=== PATIENT | male | born 1985 | race Caucasian/White ===

== ENCOUNTER 2020-10-14 16:52 | Inpatient (IN) | payer MEDICAID ==
[~2020-10-14] VITALS: Ht 167.6 cm; Wt 57.2 kg
[2020-10-14] MEDS ORDERED: OLAN10TA74 PO (22:40)
[2020-10-15] MEDS: OLANZapine 10 MG TABLET PO SCH ×3 (03:58→16:57)
[2020-10-15 06:10] VITALS: BP 118/79
[2020-10-15] MEDS ORDERED: CloNIDine HCL 0.1 MG TABLET PO PRN (07:15)
[2020-10-15] MEDS ORDERED: GuaiFENesin/D-METHORPHAN [SUGAR-FREE] 200-20MG/10 ML SYRUP UDCUP PO PRN (07:15)
[2020-10-15] MEDS ORDERED: ALBUTEROL SULFATE HFA 90 MCG/PUFF 8 GM INHALER IH PRN (07:15)
[2020-10-15] MEDS ORDERED: DOCUSATE SODIUM 100 MG CAPSULE PO PRN (07:15)
[2020-10-15] MEDS ORDERED: NICOTINE 14 MG/24 HOUR PATCH TD PRN (07:15)
[2020-10-15] MEDS ORDERED: MAGNESIUM HYDROXIDE SUSPENSION 30 ML UDCUP PO PRN (07:15)
[2020-10-15] MEDS ORDERED: MAG HYDROX/AL HYDROX/SIMETH ES 30 ML SUSPENSION UDCUP PO PRN (07:15)
[2020-10-15] MEDS ORDERED: LOPERAMIDE HCL 2 MG CAPSULE PO PRN (07:15)
[2020-10-15] MEDS ORDERED: IBUPROFEN 400 MG TABLET PO PRN (07:15)
[2020-10-15] MEDS ORDERED: ONDANSETRON HCL 4 MG TABLET PO PRN (07:15)
[2020-10-15] MEDS ORDERED: ACETAMINOPHEN 325 MG TABLET PO PRN (07:15)
[2020-10-15] MEDS ORDERED: PETROLATUM,WHITE 28 GM JELLY TP PRN (07:15)
[2020-10-15 09:40] VITALS: BP 119/69
[2020-10-15] MEDS ORDERED: GABAPENTIN 300 MG CAPSULE PO SCH (10:15)
[2020-10-15] MEDS ORDERED: CLOZ100T32 PO (11:17)
[2020-10-15] MEDS ORDERED: DIPH-1080 PO (12:05)
[2020-10-15] MEDS ORDERED: HYD25 PO (12:05)
[2020-10-15] MEDS ORDERED: BENZ1TAB10 PO (12:05)
[2020-10-15] MEDS ORDERED: PARO-37 PO (12:05)
[2020-10-15] MEDS ORDERED: MIRT-92 PO (12:05)
[2020-10-15] MEDS ORDERED: CHLO50TA24 PO (12:05)
[2020-10-15] MEDS ORDERED: ARIP10TA38 PO (12:05)
[2020-10-15 16:33] VITALS: BP 116/72
[2020-10-15] MEDS ORDERED: DiphenhydrAMINE HCL 50 MG/ML VIAL IM ONE (16:45)
[2020-10-15] MEDS ORDERED: ChlorproMAZINE HCL 50 MG/2 ML AMP IM ONE (16:45)
[2020-10-15] MEDS ORDERED: LORazepam 2 MG/ML VIAL IM ONE (16:45)
[2020-10-15] MEDS ORDERED: DiphenhydrAMINE HCL 50 MG/ML VIAL ONE (16:47)
[2020-10-15] MEDS ORDERED: LORazepam 2 MG/ML VIAL ONE (16:47)
[2020-10-15] MEDS ORDERED: ChlorproMAZINE HCL 50 MG/2 ML AMP ONE (16:47)
[2020-10-15] MEDS: CloZAPine 100 MG TABLET PO SCH (16:57)
[2020-10-15] MEDS ORDERED: OLANZapine 7.5 MG TABLET PO SCH (17:00)
[2020-10-15] MEDS ORDERED: OLANZapine 10 MG TABLET PO SCH (17:00)
[2020-10-16 01:43] VITALS: BP 127/81
[2020-10-16 08:24] VITALS: BP 120/81
[2020-10-16] MEDS: OLANZapine 10 MG TABLET PO SCH ×2 (09:00→16:50)
[2020-10-16] MEDS: CloZAPine 100 MG TABLET PO SCH ×2 (09:00→16:50)
[2020-10-16] MEDS ORDERED: LORazepam 2 MG/ML VIAL IM ONE (09:00)
[2020-10-16] MEDS ORDERED: ChlorproMAZINE HCL 50 MG/2 ML AMP IM ONE (09:00)
[2020-10-16] MEDS ORDERED: DiphenhydrAMINE HCL 50 MG/ML VIAL IM ONE (09:00)
[2020-10-17 00:21] VITALS: BP 104/70
[2020-10-17 08:34] LABS: APPEARANCE,URINE CLEAR (CLEAR); BILIRUBIN,URINE NEGATIVE (NEGATIVE); GLUCOSE, URINE (UA) NEGATIVE (NEGATIVE); KETONES,URINE NEGATIVE (NEGATIVE); LEUKOCYTE ESTERASE ,URINE NEGATIVE (NEGATIVE); NITRATE,URINE NEGATIVE (NEGATIVE); OCCULT BLOOD,URINE NEGATIVE (NEGATIVE); PROTEIN,URINE NEGATIVE (NEGATIVE); UROBILINOGEN,URINE 0.2 mg/dL (<=1.0)
[2020-10-17 08:38] LABS: AMPHET/METH SCREEN,URINE POSITIVE (NEGATIVE); BARBITURATE SCREEN, URINE NEGATIVE (NEGATIVE); BENZODIAZEPINES SCREEN,URINE NEGATIVE (NEGATIVE); CANNABINOID SCREEN,URINE NEGATIVE (NEGATIVE); COCAINE SCREEN,URINE NEGATIVE (NEGATIVE); METHADONE SCREEN, URINE NEGATIVE (NEGATIVE); OPIATE SCREEN,URINE NEGATIVE (NEGATIVE)
[2020-10-17] MEDS: OLANZapine 10 MG TABLET PO SCH ×2 (08:41→17:00)
[2020-10-17] MEDS: CloZAPine 100 MG TABLET PO SCH ×2 (08:41→17:00)
[2020-10-17 08:44] LABS: PHENCYCLIDINE SCREEN,URINE NEGATIVE (NEGATIVE)
[2020-10-17] MEDS ORDERED: LORazepam 2 MG/ML VIAL ONE (18:44)
[2020-10-17] MEDS ORDERED: DiphenhydrAMINE HCL 50 MG/ML VIAL IM ONE (18:45)
[2020-10-17] MEDS ORDERED: DiphenhydrAMINE HCL 50 MG/ML VIAL ONE (18:45)
[2020-10-17] MEDS ORDERED: LORazepam 2 MG/ML VIAL IM ONE (18:45)
[2020-10-17] MEDS ORDERED: HALOPERIDOL LACTATE 5 MG/ML VIAL ONE (18:45)
[2020-10-17] MEDS ORDERED: HALOPERIDOL LACTATE 5 MG/ML VIAL IM ONE (18:45)
[2020-10-18] MEDS: CloZAPine 100 MG TABLET PO SCH ×2 (09:00→16:52)
[2020-10-18] MEDS: OLANZapine 10 MG TABLET PO SCH ×2 (09:00→16:52)
[2020-10-18] MEDS ORDERED: HALOPERIDOL LACTATE 5 MG/ML VIAL IM ONE (10:30)
[2020-10-18] MEDS ORDERED: DiphenhydrAMINE HCL 50 MG/ML VIAL IM ONE (10:30)
[2020-10-18] MEDS ORDERED: LORazepam 2 MG/ML VIAL IM ONE (10:30)
[2020-10-19 08:28] VITALS: BP 124/76
[2020-10-19] MEDS: CloZAPine 100 MG TABLET PO SCH ×2 (08:57→18:22)
[2020-10-19] MEDS: OLANZapine 10 MG TABLET PO SCH ×2 (08:57→18:22)
[2020-10-19 16:11] VITALS: BP 125/79
[2020-10-19] MEDS: LORazepam 2 MG TABLET PO PRN (18:22)
[2020-10-20 04:30] VITALS: BP 130/79
[2020-10-20] MEDS: CloZAPine 100 MG TABLET PO SCH ×2 (08:50→16:36)
[2020-10-20] MEDS: OLANZapine 10 MG TABLET PO SCH ×2 (08:50→16:36)
[2020-10-20] MEDS: HALOPERIDOL LACTATE 5 MG/ML VIAL IM PRN (09:20)
[2020-10-20] MEDS ORDERED: ChlorproMAZINE HCL 50 MG/2 ML AMP IM ONE (16:45)
[2020-10-20] MEDS ORDERED: LORazepam 2 MG/ML VIAL IM ONE (16:45)
[2020-10-20] MEDS ORDERED: DiphenhydrAMINE HCL 50 MG/ML VIAL IM ONE (16:45)
[2020-10-20] MEDS ORDERED: LORazepam 2 MG/ML VIAL ONE (16:46)
[2020-10-20] MEDS ORDERED: ChlorproMAZINE HCL 50 MG/2 ML AMP ONE (16:47)
[2020-10-20] MEDS ORDERED: DiphenhydrAMINE HCL 50 MG/ML VIAL ONE (16:47)
[2020-10-20 17:56] VITALS: BP 118/70
[2020-10-21 02:26] VITALS: BP 129/81
[2020-10-21] MEDS: LORazepam 2 MG/ML VIAL IM ONE ×2 (08:30→10:12)
[2020-10-21] MEDS: DiphenhydrAMINE HCL 50 MG/ML VIAL IM ONE ×2 (08:30→10:13)
[2020-10-21] MEDS ORDERED: ChlorproMAZINE HCL 50 MG/2 ML AMP IM ONE ×2 (08:30→09:15)
[2020-10-21] MEDS ORDERED: LORazepam 2 MG/ML VIAL ONE (08:32)
[2020-10-21] MEDS ORDERED: ChlorproMAZINE HCL 50 MG/2 ML AMP ONE (08:33)
[2020-10-21] MEDS ORDERED: DiphenhydrAMINE HCL 50 MG/ML VIAL ONE (08:33)
[2020-10-21] MEDS: CloZAPine 100 MG TABLET PO SCH ×2 (09:00→17:00)
[2020-10-21] MEDS: OLANZapine 10 MG TABLET PO SCH ×2 (09:00→17:00)
[2020-10-21 09:15] VITALS: BP 108/66
[2020-10-21] MEDS ORDERED: LORazepam 2 MG/ML VIAL IM ONE (09:15)
[2020-10-21] MEDS ORDERED: DiphenhydrAMINE HCL 50 MG/ML VIAL IM ONE (09:15)
[2020-10-21] MEDS: HALOPERIDOL LACTATE 5 MG/ML VIAL IM PRN ×2 (10:00→17:17)
[2020-10-21 16:12] VITALS: BP 111/68
[2020-10-22 01:00] VITALS: BP 116/78
[2020-10-22] MEDS: OLANZapine 10 MG TABLET PO SCH ×3 (09:00→17:24)
[2020-10-22] MEDS: CloZAPine 100 MG TABLET PO SCH ×3 (09:00→17:24)
[2020-10-22] MEDS: HALOPERIDOL LACTATE 5 MG/ML VIAL IM PRN (09:07)
[2020-10-23] MEDS: CloZAPine 100 MG TABLET PO SCH ×2 (09:00→16:21)
[2020-10-23] MEDS: OLANZapine 10 MG TABLET PO SCH ×2 (09:00→16:21)
[2020-10-23] MEDS: HALOPERIDOL LACTATE 5 MG/ML VIAL IM PRN ×2 (09:20→17:04)
[2020-10-24 02:34] VITALS: BP 114/70
[2020-10-24] MEDS: ZOLPIDEM TARTRATE 10 MG TABLET PO PRN (02:37)
[2020-10-24] MEDS ORDERED: LORazepam 2 MG/ML VIAL ONE (07:40)
[2020-10-24] MEDS ORDERED: LORazepam 2 MG/ML VIAL IM ONE (07:45)
[2020-10-24] MEDS ORDERED: DiphenhydrAMINE HCL 50 MG/ML VIAL IM ONE (07:45)
[2020-10-24] MEDS ORDERED: HALOPERIDOL LACTATE 5 MG/ML VIAL IM ONE (07:45)
[2020-10-24] MEDS: CloZAPine 100 MG TABLET PO SCH ×2 (09:00→16:41)
[2020-10-24] MEDS: OLANZapine 10 MG TABLET PO SCH ×2 (09:00→16:41)
[2020-10-24] MEDS: HALOPERIDOL LACTATE 5 MG/ML VIAL IM PRN ×2 (09:35→16:59)
[2020-10-25 08:09] VITALS: BP 125/83
[2020-10-25] MEDS: HALOPERIDOL LACTATE 5 MG/ML VIAL IM PRN ×2 (08:50→17:37)
[2020-10-25] MEDS: CloZAPine 100 MG TABLET PO SCH ×2 (08:52→17:00)
[2020-10-25] MEDS: OLANZapine 10 MG TABLET PO SCH ×2 (08:52→17:00)
[2020-10-25 16:04] VITALS: BP 107/72
[2020-10-26 01:48] VITALS: BP 118/72
[2020-10-26 07:34] LABS: GLUCOMETER DEV NAME(LOC) BV3N.; GLUCOSE,POINT OF CARE 114 MG/DL (70-110)
[2020-10-26 08:21] VITALS: BP 111/68
[2020-10-26] MEDS: CloZAPine 100 MG TABLET PO SCH ×2 (08:35→16:14)
[2020-10-26] MEDS: OLANZapine 10 MG TABLET PO SCH ×2 (08:35→16:14)
[2020-10-26] MEDS: BENZTROPINE MESYLATE 1 MG TABLET PO SCH (16:14)
[2020-10-26] MEDS: HALOPERIDOL LACTATE 5 MG/ML VIAL IM PRN (22:12)
[2020-10-27] MEDS: HALOPERIDOL 5 MG TABLET PO PRN (03:22)
[2020-10-27] MEDS: BENZTROPINE MESYLATE 1 MG TABLET PO SCH ×2 (10:55→16:51)
[2020-10-27] MEDS: CloZAPine 100 MG TABLET PO SCH ×2 (10:55→16:51)
[2020-10-27] MEDS: OLANZapine 10 MG TABLET PO SCH ×2 (10:55→16:51)
[2020-10-27] MEDS: HALOPERIDOL LACTATE 5 MG/ML VIAL IM PRN (16:52)
[2020-10-28 08:25] VITALS: BP 128/91
[2020-10-28] MEDS: BENZTROPINE MESYLATE 1 MG TABLET PO SCH ×2 (09:00→16:30)
[2020-10-28] MEDS: CloZAPine 100 MG TABLET PO SCH ×2 (09:00→16:30)
[2020-10-28] MEDS: HALOPERIDOL LACTATE 5 MG/ML VIAL IM PRN ×2 (09:00→16:32)
[2020-10-28] MEDS: OLANZapine 10 MG TABLET PO SCH ×2 (09:00→16:30)
[2020-10-29 08:13] VITALS: BP 137/80
[2020-10-29] MEDS: HALOPERIDOL LACTATE 5 MG/ML VIAL IM PRN ×2 (08:30→17:30)
[2020-10-29] MEDS: BENZTROPINE MESYLATE 1 MG TABLET PO SCH ×2 (08:34→17:00)
[2020-10-29] MEDS: CloZAPine 100 MG TABLET PO SCH ×2 (08:34→17:00)
[2020-10-29] MEDS: OLANZapine 10 MG TABLET PO SCH ×2 (08:34→17:00)
[2020-10-29] MEDS ORDERED: LORazepam 2 MG/ML VIAL ONE (14:05)
[2020-10-29] MEDS ORDERED: ChlorproMAZINE HCL 50 MG/2 ML AMP IM ONE (14:15)
[2020-10-29] MEDS ORDERED: LORazepam 2 MG/ML VIAL IM ONE (14:15)
[2020-10-29] MEDS ORDERED: DiphenhydrAMINE HCL 50 MG/ML VIAL IM ONE (14:15)
[2020-10-30 08:14] VITALS: BP 122/81
[2020-10-30] MEDS: HALOPERIDOL LACTATE 5 MG/ML VIAL IM PRN (08:20)
[2020-10-30] MEDS: CloZAPine 100 MG TABLET PO SCH ×2 (08:23→17:58)
[2020-10-30] MEDS: OLANZapine 10 MG TABLET PO SCH ×2 (08:23→17:58)
[2020-10-30] MEDS: BENZTROPINE MESYLATE 1 MG TABLET PO SCH ×2 (08:23→17:58)
[2020-10-31] MEDS ORDERED: LORazepam 2 MG/ML VIAL ONE (08:28)
[2020-10-31] MEDS ORDERED: ChlorproMAZINE HCL 50 MG/2 ML AMP ONE (08:28)
[2020-10-31] MEDS ORDERED: LORazepam 2 MG/ML VIAL IM ONE (08:30)
[2020-10-31] MEDS ORDERED: ChlorproMAZINE HCL 50 MG/2 ML AMP IM ONE (08:30)
[2020-10-31] MEDS ORDERED: DiphenhydrAMINE HCL 50 MG/ML VIAL IM ONE (08:30)
[2020-10-31] MEDS: OLANZapine 10 MG TABLET PO SCH ×2 (08:47→15:57)
[2020-10-31] MEDS: BENZTROPINE MESYLATE 1 MG TABLET PO SCH ×2 (08:47→15:57)
[2020-10-31] MEDS: CloZAPine 100 MG TABLET PO SCH ×2 (08:47→15:57)
[2020-10-31 08:51] VITALS: BP 112/81
[2020-10-31 10:00] VITALS: BP 105/68
[2020-10-31 10:30] VITALS: BP 105/68
[2020-11-01 01:41] VITALS: BP 140/87
[2020-11-01] MEDS: BENZTROPINE MESYLATE 1 MG TABLET PO SCH ×2 (08:47→16:08)
[2020-11-01] MEDS: OLANZapine 10 MG TABLET PO SCH ×2 (08:47→16:08)
[2020-11-01] MEDS: CloZAPine 100 MG TABLET PO SCH ×2 (08:47→16:08)
[2020-11-01] MEDS: LORazepam 2 MG TABLET PO PRN (16:08)
[2020-11-01 16:33] VITALS: BP 126/85
[2020-11-02 08:11] VITALS: BP 130/63
[2020-11-02] MEDS ORDERED: DiphenhydrAMINE HCL 50 MG/ML VIAL ONE (08:14)
[2020-11-02] MEDS ORDERED: LORazepam 2 MG/ML VIAL ONE (08:14)
[2020-11-02] MEDS ORDERED: ChlorproMAZINE HCL 50 MG/2 ML AMP ONE (08:15)
[2020-11-02] MEDS: BENZTROPINE MESYLATE 1 MG TABLET PO SCH ×2 (08:29→16:18)
[2020-11-02] MEDS: CloZAPine 100 MG TABLET PO SCH ×2 (08:29→16:18)
[2020-11-02] MEDS: OLANZapine 10 MG TABLET PO SCH ×2 (08:29→16:18)
[2020-11-02] MEDS ORDERED: DiphenhydrAMINE HCL 50 MG/ML VIAL IM ONE (08:30)
[2020-11-02] MEDS ORDERED: LORazepam 2 MG/ML VIAL IM ONE (08:30)
[2020-11-02] MEDS ORDERED: ChlorproMAZINE HCL 50 MG/2 ML AMP IM ONE (08:30)
[2020-11-02 09:00] VITALS: BP 116/80
[2020-11-02 16:09] VITALS: BP 134/83
[2020-11-02] MEDS: LORazepam 2 MG TABLET PO PRN ×2 (16:18→21:43)
[2020-11-02] MEDS: ZOLPIDEM TARTRATE 10 MG TABLET PO PRN (21:43)
[2020-11-03 00:12] VITALS: BP 121/86
[2020-11-03] MEDS: HALOPERIDOL 5 MG TABLET PO PRN ×2 (00:22→08:23)
[2020-11-03] MEDS: LORazepam 2 MG TABLET PO PRN ×3 (03:40→22:03)
[2020-11-03] MEDS: BENZTROPINE MESYLATE 1 MG TABLET PO SCH ×2 (09:00→16:30)
[2020-11-03] MEDS: OLANZapine 10 MG TABLET PO SCH ×2 (09:00→16:30)
[2020-11-03] MEDS: CloZAPine 100 MG TABLET PO SCH ×2 (09:00→16:30)
[2020-11-03 09:52] VITALS: BP 134/86
[2020-11-03] MEDS: ZOLPIDEM TARTRATE 10 MG TABLET PO PRN (22:03)
[2020-11-04] MEDS: HALOPERIDOL 5 MG TABLET PO PRN ×4 (01:00→21:35)
[2020-11-04 01:03] VITALS: BP 114/83
[2020-11-04] MEDS: LORazepam 2 MG TABLET PO PRN (02:28)
[2020-11-04 08:07] VITALS: BP 129/84
[2020-11-04] MEDS: CloZAPine 100 MG TABLET PO SCH ×2 (09:00→16:10)
[2020-11-04] MEDS: OLANZapine 10 MG TABLET PO SCH ×2 (09:31→16:09)
[2020-11-04] MEDS: BENZTROPINE MESYLATE 1 MG TABLET PO SCH ×2 (09:31→16:09)
[2020-11-04 16:14] VITALS: BP 114/82
[2020-11-04] MEDS: ZOLPIDEM TARTRATE 10 MG TABLET PO PRN (22:15)
[2020-11-05 00:19] VITALS: BP 123/77
[2020-11-05 08:04] VITALS: BP 129/79
[2020-11-05] MEDS: CloZAPine 100 MG TABLET PO SCH ×3 (09:00→16:30)
[2020-11-05] MEDS: BENZTROPINE MESYLATE 1 MG TABLET PO SCH ×2 (09:16→16:24)
[2020-11-05] MEDS: OLANZapine 10 MG TABLET PO SCH ×2 (09:16→16:24)
[2020-11-05] MEDS: HALOPERIDOL 5 MG TABLET PO PRN ×2 (11:51→18:36)
[2020-11-05] MEDS: LORazepam 2 MG TABLET PO PRN (11:51)
[2020-11-05 16:04] VITALS: BP 122/72
[2020-11-05] MEDS: ZOLPIDEM TARTRATE 10 MG TABLET PO PRN (21:38)
[2020-11-06 00:18] VITALS: BP 122/67
[2020-11-06] MEDS: HALOPERIDOL 5 MG TABLET PO PRN ×6 (02:12→22:29)
[2020-11-06 08:10] VITALS: BP 123/76
[2020-11-06] MEDS: CloZAPine 100 MG TABLET PO SCH (08:26)
[2020-11-06] MEDS: BENZTROPINE MESYLATE 1 MG TABLET PO SCH ×2 (08:26→16:18)
[2020-11-06] MEDS: MULTIVITAMINS WITH MINERALS, THERAPEUTIC TABLET PO SCH (08:26)
[2020-11-06] MEDS: OLANZapine 10 MG TABLET PO SCH ×2 (08:26→16:18)
[2020-11-06 16:29] VITALS: BP 127/92
[2020-11-06] MEDS: QUEtiapine FUMARATE 200 MG TABLET PO SCH (20:06)
[2020-11-07] MEDS: ZOLPIDEM TARTRATE 10 MG TABLET PO PRN (00:18)
[2020-11-07] MEDS: LORazepam 2 MG TABLET PO PRN (00:18)
[2020-11-07 01:09] VITALS: BP 132/66
[2020-11-07] MEDS: BENZTROPINE MESYLATE 1 MG TABLET PO SCH ×2 (08:04→16:10)
[2020-11-07] MEDS: OLANZapine 10 MG TABLET PO SCH ×2 (08:04→16:10)
[2020-11-07] MEDS: MULTIVITAMINS WITH MINERALS, THERAPEUTIC TABLET PO SCH (08:04)
[2020-11-07] MEDS: HALOPERIDOL 5 MG TABLET PO PRN ×3 (08:10→16:34)
[2020-11-07 08:11] VITALS: BP 112/76
[2020-11-07] MEDS: QUEtiapine FUMARATE 200 MG TABLET PO SCH (20:48)
[2020-11-08 02:19] VITALS: BP 123/81
[2020-11-08 08:09] VITALS: BP 132/85
[2020-11-08] MEDS: OLANZapine 10 MG TABLET PO SCH ×2 (09:39→16:42)
[2020-11-08] MEDS: BENZTROPINE MESYLATE 1 MG TABLET PO SCH ×2 (09:39→16:42)
[2020-11-08] MEDS: MULTIVITAMINS WITH MINERALS, THERAPEUTIC TABLET PO SCH (09:39)
[2020-11-08 17:30] VITALS: BP 123/85
[2020-11-08] MEDS: QUEtiapine FUMARATE 200 MG TABLET PO SCH (21:00)
[2020-11-08] MEDS: HALOPERIDOL 5 MG TABLET PO PRN (22:41)
[2020-11-09 00:06] VITALS: BP 101/62
[2020-11-09] MEDS: OLANZapine 10 MG TABLET PO SCH ×2 (08:13→18:00)
[2020-11-09] MEDS: MULTIVITAMINS WITH MINERALS, THERAPEUTIC TABLET PO SCH (08:13)
[2020-11-09] MEDS: BENZTROPINE MESYLATE 1 MG TABLET PO SCH ×2 (08:13→18:00)
[2020-11-09 09:18] VITALS: BP_SYST 107
[2020-11-09 16:22] VITALS: BP 124/82
[2020-11-09] MEDS: QUEtiapine FUMARATE 200 MG TABLET PO SCH (21:00)
[2020-11-10 00:13] VITALS: BP 127/83
[2020-11-10] MEDS: ZOLPIDEM TARTRATE 10 MG TABLET PO PRN (00:37)
[2020-11-10] MEDS ORDERED: FluPHENAZine HCL 2.5 MG/ML INJ IM ONE (07:30)
[2020-11-10] MEDS ORDERED: DiphenhydrAMINE HCL 50 MG/ML VIAL IM ONE (07:30)
[2020-11-10] MEDS ORDERED: LORazepam 2 MG/ML VIAL IM ONE (07:30)
[2020-11-10 08:12] VITALS: BP 125/80
[2020-11-10] MEDS: MULTIVITAMINS WITH MINERALS, THERAPEUTIC TABLET PO SCH (08:34)
[2020-11-10] MEDS: BENZTROPINE MESYLATE 1 MG TABLET PO SCH ×2 (08:34→16:17)
[2020-11-10] MEDS: OLANZapine 10 MG TABLET PO SCH ×2 (08:34→16:17)
[2020-11-10] MEDS: QUEtiapine FUMARATE 200 MG TABLET PO SCH (21:00)
[2020-11-11 04:26] VITALS: BP 124/83
[2020-11-11 08:50] VITALS: BP 122/89
[2020-11-11] MEDS: BENZTROPINE MESYLATE 1 MG TABLET PO SCH ×2 (09:00→16:54)
[2020-11-11] MEDS: OLANZapine 10 MG TABLET PO SCH ×2 (09:00→16:54)
[2020-11-11] MEDS: MULTIVITAMINS WITH MINERALS, THERAPEUTIC TABLET PO SCH (09:00)
[2020-11-11] MEDS: HALOPERIDOL 5 MG TABLET PO PRN (21:23)
[2020-11-11] MEDS: ZOLPIDEM TARTRATE 10 MG TABLET PO PRN (22:27)
[2020-11-12] MEDS: HALOPERIDOL 5 MG TABLET PO PRN (01:54)
[2020-11-12 04:23] VITALS: BP 124/80
[2020-11-12 08:19] VITALS: BP 122/82
[2020-11-12] MEDS: OLANZapine 10 MG TABLET PO SCH ×2 (08:22→17:00)
[2020-11-12] MEDS: MULTIVITAMINS WITH MINERALS, THERAPEUTIC TABLET PO SCH (08:22)
[2020-11-12] MEDS: BENZTROPINE MESYLATE 1 MG TABLET PO SCH ×2 (08:22→17:00)
[2020-11-13 01:52] VITALS: BP 108/65
[2020-11-13] MEDS: BENZTROPINE MESYLATE 1 MG TABLET PO SCH ×2 (08:46→17:00)
[2020-11-13] MEDS: MULTIVITAMINS WITH MINERALS, THERAPEUTIC TABLET PO SCH (08:46)
[2020-11-13] MEDS: OLANZapine 10 MG TABLET PO SCH ×2 (08:48→17:00)
[2020-11-13] MEDS ORDERED: LORazepam 2 MG/ML VIAL IM ONE (12:45)
[2020-11-13] MEDS ORDERED: FluPHENAZine HCL 2.5 MG/ML INJ IM ONE (12:45)
[2020-11-13] MEDS ORDERED: DiphenhydrAMINE HCL 50 MG/ML VIAL IM ONE (12:45)
[2020-11-14 00:55] VITALS: BP 116/72
[2020-11-14 08:37] VITALS: BP 112/77
[2020-11-14] MEDS: BENZTROPINE MESYLATE 1 MG TABLET PO SCH ×2 (09:00→17:00)
[2020-11-14] MEDS: OLANZapine 10 MG TABLET PO SCH ×2 (09:00→17:00)
[2020-11-14] MEDS: MULTIVITAMINS WITH MINERALS, THERAPEUTIC TABLET PO SCH (09:00)
[2020-11-15 02:40] VITALS: BP 105/65
[2020-11-15] MEDS: OLANZapine 10 MG TABLET PO SCH ×2 (08:32→17:01)
[2020-11-15] MEDS: BENZTROPINE MESYLATE 1 MG TABLET PO SCH ×2 (08:32→17:00)
[2020-11-15] MEDS: MULTIVITAMINS WITH MINERALS, THERAPEUTIC TABLET PO SCH (08:32)
[2020-11-15] MEDS: HALOPERIDOL 5 MG TABLET PO PRN ×2 (11:11→19:10)
[2020-11-15] MEDS: LITHIUM CARBONATE 300 MG CAPSULE PO SCH ×2 (12:24→17:01)
[2020-11-15] MEDS ORDERED: DiphenhydrAMINE HCL 50 MG/ML VIAL IM ONE (21:00)
[2020-11-15] MEDS ORDERED: LORazepam 2 MG/ML VIAL IM ONE (21:00)
[2020-11-15] MEDS ORDERED: HALOPERIDOL LACTATE 5 MG/ML VIAL IM ONE (21:00)
[2020-11-16 05:30] VITALS: BP 110/75
[2020-11-16] MEDS: LITHIUM CARBONATE 300 MG CAPSULE PO SCH ×3 (06:44→17:46)
[2020-11-16 08:18] VITALS: BP 112/67
[2020-11-16] MEDS: OLANZapine 10 MG TABLET PO SCH ×2 (08:32→16:47)
[2020-11-16] MEDS: BENZTROPINE MESYLATE 1 MG TABLET PO SCH ×2 (08:32→16:47)
[2020-11-16] MEDS: MULTIVITAMINS WITH MINERALS, THERAPEUTIC TABLET PO SCH (08:32)
[2020-11-16] MEDS: HALOPERIDOL 5 MG TABLET PO PRN ×2 (09:09→21:22)
[2020-11-17] MEDS: LITHIUM CARBONATE 300 MG CAPSULE PO SCH ×2 (06:42→16:26)
[2020-11-17 08:15] VITALS: BP 124/81
[2020-11-17] MEDS: OLANZapine 10 MG TABLET PO SCH ×2 (09:00→16:25)
[2020-11-17] MEDS: MULTIVITAMINS WITH MINERALS, THERAPEUTIC TABLET PO SCH ×2 (09:00→09:52)
[2020-11-17] MEDS: BENZTROPINE MESYLATE 1 MG TABLET PO SCH ×3 (09:00→16:25)
[2020-11-17] MEDS: HALOPERIDOL 5 MG TABLET PO PRN ×2 (11:29→23:47)
[2020-11-17] MEDS ORDERED: LORazepam 2 MG/ML VIAL IM ONE (11:45)
[2020-11-17] MEDS ORDERED: DiphenhydrAMINE HCL 50 MG/ML VIAL IM ONE (11:45)
[2020-11-17] MEDS ORDERED: HALOPERIDOL LACTATE 5 MG/ML VIAL IM ONE (11:45)
[2020-11-18 00:02] VITALS: BP 106/71
[2020-11-18] MEDS: LITHIUM CARBONATE 300 MG CAPSULE PO SCH ×2 (06:17→16:50)
[2020-11-18 08:15] VITALS: BP_SYST 130; BP_SYST 78; BP_DIAS 20; BP_DIAS 78
[2020-11-18] MEDS: MULTIVITAMINS WITH MINERALS, THERAPEUTIC TABLET PO SCH (08:40)
[2020-11-18] MEDS: BENZTROPINE MESYLATE 1 MG TABLET PO SCH ×2 (08:40→16:50)
[2020-11-18] MEDS: OLANZapine 10 MG TABLET PO SCH ×2 (08:40→16:50)
[2020-11-18] MEDS: HALOPERIDOL 5 MG TABLET PO PRN ×2 (10:49→21:41)
[2020-11-18] MEDS: LORazepam 2 MG TABLET PO PRN (16:50)
[2020-11-19] MEDS: HALOPERIDOL 5 MG TABLET PO PRN ×4 (05:11→22:30)
[2020-11-19] MEDS: LITHIUM CARBONATE 300 MG CAPSULE PO SCH (07:01)
[2020-11-19 08:27] VITALS: BP 125/80
[2020-11-19] MEDS: BENZTROPINE MESYLATE 1 MG TABLET PO SCH ×2 (08:42→16:48)
[2020-11-19] MEDS: OLANZapine 10 MG TABLET PO SCH ×2 (08:42→16:49)
[2020-11-19] MEDS: MULTIVITAMINS WITH MINERALS, THERAPEUTIC TABLET PO SCH (08:42)
[2020-11-19] MEDS ORDERED: LITHIUM CARBONATE 300 MG CAPSULE PO ONE (10:00)
[2020-11-19] MEDS: LITHIUM CARBONATE 600 MG CAPSULE PO SCH (16:49)
[2020-11-19] MEDS ORDERED: LITHIUM CARBONATE 600 MG CAPSULE PO SCH (17:00)
[2020-11-20 00:14] VITALS: BP 126/81
[2020-11-20] MEDS: HALOPERIDOL 5 MG TABLET PO PRN ×3 (03:48→22:15)
[2020-11-20] MEDS: LITHIUM CARBONATE 600 MG CAPSULE PO SCH ×2 (08:11→16:55)
[2020-11-20] MEDS: MULTIVITAMINS WITH MINERALS, THERAPEUTIC TABLET PO SCH (08:11)
[2020-11-20] MEDS: BENZTROPINE MESYLATE 1 MG TABLET PO SCH ×2 (09:00→16:55)
[2020-11-20] MEDS: OLANZapine 10 MG TABLET PO SCH ×2 (09:58→16:55)
[2020-11-20] MEDS ORDERED: DiphenhydrAMINE HCL 50 MG/ML VIAL ONE (16:08)
[2020-11-20] MEDS ORDERED: LORazepam 2 MG/ML VIAL ONE (16:08)
[2020-11-20] MEDS ORDERED: HALOPERIDOL LACTATE 5 MG/ML VIAL ONE (16:08)
[2020-11-20] MEDS ORDERED: DiphenhydrAMINE HCL 50 MG/ML VIAL IM ONE (16:15)
[2020-11-20] MEDS ORDERED: LORazepam 2 MG/ML VIAL IM ONE (16:15)
[2020-11-20] MEDS ORDERED: HALOPERIDOL LACTATE 5 MG/ML VIAL IM ONE (16:15)
[2020-11-21 01:58] VITALS: BP 123/78
[2020-11-21] MEDS: LITHIUM CARBONATE 600 MG CAPSULE PO SCH ×2 (08:16→16:19)
[2020-11-21] MEDS: MULTIVITAMINS WITH MINERALS, THERAPEUTIC TABLET PO SCH (08:16)
[2020-11-21] MEDS: BENZTROPINE MESYLATE 1 MG TABLET PO SCH ×2 (08:16→16:20)
[2020-11-21] MEDS: OLANZapine 10 MG TABLET PO SCH ×2 (08:16→16:20)
[2020-11-21 08:26] VITALS: BP 112/71
[2020-11-21] MEDS: HALOPERIDOL 5 MG TABLET PO PRN ×3 (09:50→18:41)
[2020-11-21] MEDS: LORazepam 2 MG TABLET PO PRN (12:36)
[2020-11-21] MEDS ORDERED: HALOPERIDOL LACTATE 5 MG/ML VIAL ONE (18:53)
[2020-11-21] MEDS ORDERED: DiphenhydrAMINE HCL 50 MG/ML VIAL ONE (18:53)
[2020-11-21] MEDS ORDERED: DiphenhydrAMINE HCL 50 MG/ML VIAL IM ONE (19:00)
[2020-11-21] MEDS ORDERED: HALOPERIDOL LACTATE 5 MG/ML VIAL IM ONE (19:00)
[2020-11-21] MEDS ORDERED: LORazepam 2 MG/ML VIAL IM ONE (19:00)
[2020-11-22 00:29] VITALS: BP 110/62
[2020-11-22] MEDS: HALOPERIDOL 5 MG TABLET PO PRN ×5 (05:13→21:59)
[2020-11-22] MEDS: BENZTROPINE MESYLATE 1 MG TABLET PO SCH ×2 (08:18→16:09)
[2020-11-22] MEDS: MULTIVITAMINS WITH MINERALS, THERAPEUTIC TABLET PO SCH (08:18)
[2020-11-22] MEDS: LITHIUM CARBONATE 600 MG CAPSULE PO SCH ×2 (08:18→16:09)
[2020-11-22] MEDS: OLANZapine 10 MG TABLET PO SCH ×2 (08:18→16:09)
[2020-11-22 08:21] VITALS: BP 124/84
[2020-11-23 00:07] VITALS: BP 120/78
[2020-11-23] MEDS: HALOPERIDOL 5 MG TABLET PO PRN ×2 (04:24→10:11)
[2020-11-23] MEDS: LITHIUM CARBONATE 600 MG CAPSULE PO SCH ×2 (08:27→16:35)
[2020-11-23] MEDS: MULTIVITAMINS WITH MINERALS, THERAPEUTIC TABLET PO SCH (08:27)
[2020-11-23] MEDS: OLANZapine 10 MG TABLET PO SCH ×2 (08:27→16:35)
[2020-11-23] MEDS: BENZTROPINE MESYLATE 1 MG TABLET PO SCH ×2 (08:27→17:00)
[2020-11-23 08:59] VITALS: BP 124/74
[2020-11-23 16:17] VITALS: BP 125/79
[2020-11-23] MEDS ORDERED: LITH600C5 PO (16:30)
== END 2020-11-23 17:23 | disposition home or self-care (01) | DRG 750 ==
LOC: B3A 10-15 02:00
PROVIDERS: ADMIT Psychiatry & Neurology Psychiatry; ATTEND Psychiatry & Neurology Psychiatry
DX: F25.0 Schizoaffective disorder, bipolar type (principal); G93.40 Encephalopathy, unspecified; E46 Unspecified protein-calorie malnutrition; K21.9 Gastro-esophageal reflux disease without esophagitis; R45.87 Impulsiveness; F15.10 Other stimulant abuse, uncomplicated; Z68.20 Body mass index [BMI] 20.0-20.9, adult; Z59.0 Homelessness; Z91.14 Patient's other noncompliance with medication regimen
CPT/HCPCS: 80307; 81003; 82962; J1200; J1630; J2060; J3230; J3490

== ENCOUNTER 2020-10-14 22:19 | Emergency (ER) | payer MEDICAID, OTHER ==
[~2020-10-14] VITALS: Ht 157.5 cm; Wt 50.0 kg
[2020-10-14] MEDS ORDERED: OLAN10TA74 PO (22:40)
[2020-10-14 23:55] LABS: COVID AG,FIA SOURCE NASOPHARYNGEAL
[2020-10-15 00:19] LABS: BASOPHILS % (AUTO) 0.8 % (0.0-2.0); EOSINOPHILS % (AUTO) 1.2 % (1.0-6.0); HEMATOCRIT 48.9 % (41-53); HEMOGLOBIN 16.3 g/dL (13.5-17.5); LYMPHOCYTES # (AUTO) 2.9 K/uL (1.0-4.8); LYMPHOCYTES % (AUTO) 17.2 % (22.0-44.0); MEAN CORPUSCULAR HEMOGLOBIN 29.9 pg (26.0-34.0); MEAN CORPUSCULAR HGB CONC 33.2 G/dL (31.0-37.0); MEAN CORPUSCULAR VOLUME 90 fL (80-100); MONOCYTES # (AUTO) 1.6 K/uL (0.1-1.0); MONOCYTES % (AUTO) 9.8 % (2.0-9.0); NEUTROPHILS # (AUTO) 11.9 K/uL (1.8-7.7); PLATELET COUNT (AUTO) 330 K/uL (150-450); RED BLOOD CELL COUNT(AUTO) 5.44 MIL/uL (4.50-5.90); RED CELL DISTRIBUTION WIDTH 13.8 % (11.5-14.5)
[2020-10-15 00:25] LABS: ANION GAP 10 mmol/L (8-16); CALCIUM, TOTAL 9.5 mg/dL (8.8-10.5); CARBON DIOXIDE 29 mmol/L (22-29); CHLORIDE 101 mmol/L (98-107); CREATININE 1.42 mg/dL (0.60-1.30); GLOMERULAR FILTR. RATE CALC 56 mL/min (>60); GLUCOSE,RANDOM 105 mg/dL (70-110); POTASSIUM 4.4 mmol/L (3.5-5.1); SODIUM SERUM 140 mmol/L (136-145); UREA NITROGEN, BLOOD 33 mg/dL (7-18)
[2020-10-15 00:31] LABS: ALANINE AMINOTRANSFERASE 52 U/L (12-78); ALBUMIN 4.6 g/dL (3.4-5.0); ALKALINE PHOSPHATASE 106 U/L (46-116); ASPARTATE AMINOTRANSFERASE 55 U/L (15-37); BILIRUBIN,TOTAL 0.9 mg/dL (0.1-1.0); LIPASE 126 U/L (73-393); TOTAL PROTEIN, SERUM 7.9 g/dL (6.4-8.2)
[2020-10-15 01:11] VITALS: BP 120/88
[2020-10-15] MEDS ORDERED: CLOZ100T32 PO (11:17)
[2020-10-15] MEDS ORDERED: ARIP10TA38 PO (12:05)
[2020-10-15] MEDS ORDERED: DIPH-1080 PO (12:05)
[2020-10-15] MEDS ORDERED: MIRT-92 PO (12:05)
[2020-10-15] MEDS ORDERED: HYD25 PO (12:05)
[2020-10-15] MEDS ORDERED: BENZ1TAB10 PO (12:05)
[2020-10-15] MEDS ORDERED: PARO-37 PO (12:05)
[2020-10-15] MEDS ORDERED: CHLO50TA24 PO (12:05)
== END 2020-10-15 01:14 | disposition home or self-care (01) ==
LOC: EMS 22:19
DX: F25.9 Schizoaffective disorder, unspecified (principal); F32.9 Major depressive disorder, single episode, unspecified; F41.9 Anxiety disorder, unspecified; Z20.822 Contact with and (suspected) exposure to COVID-19
CPT/HCPCS: 36415; 80053; 83690; 85025; 87426; 99285; G0480

== ENCOUNTER 2020-11-24 19:48 | Inpatient (IN) | payer MEDICAID, OTHER ==
[~2020-11-24] VITALS: Ht 170.2 cm; Wt 60.8 kg
[~2020-11-24 19:48] MED LIST: BENZ1TAB10 PO; LITH600C5 PO; OLAN10TA74 PO
[2020-11-24] MEDS ORDERED: ZOLPIDEM TARTRATE 10 MG TABLET PO PRN (21:00)
[2020-11-24 22:32] LABS: AMPHET/METH SCREEN,URINE NEGATIVE (NEGATIVE); BARBITURATE SCREEN, URINE NEGATIVE (NEGATIVE); BENZODIAZEPINES SCREEN,URINE NEGATIVE (NEGATIVE); CANNABINOID SCREEN,URINE NEGATIVE (NEGATIVE); COCAINE SCREEN,URINE NEGATIVE (NEGATIVE); METHADONE SCREEN, URINE NEGATIVE (NEGATIVE); OPIATE SCREEN,URINE NEGATIVE (NEGATIVE)
[2020-11-24 22:33] LABS: PHENCYCLIDINE SCREEN,URINE NEGATIVE (NEGATIVE)
[2020-11-24 22:35] LABS: COVID AG,FIA SOURCE NASOPHARYNGEAL
[2020-11-25] MEDS ORDERED: HALOPERIDOL 5 MG TABLET PO ONE (00:30)
[2020-11-25 03:08] LABS: APPEARANCE,URINE CLEAR (CLEAR); BILIRUBIN,URINE NEGATIVE (NEGATIVE); GLUCOSE, URINE (UA) NEGATIVE (NEGATIVE); KETONES,URINE NEGATIVE (NEGATIVE); LEUKOCYTE ESTERASE ,URINE NEGATIVE (NEGATIVE); NITRATE,URINE NEGATIVE (NEGATIVE); OCCULT BLOOD,URINE NEGATIVE (NEGATIVE); PH,URINE 7.5 (5.0-8.0); PROTEIN,URINE NEGATIVE (NEGATIVE); UROBILINOGEN,URINE 0.2 mg/dL (<=1.0)
[2020-11-25] MEDS: HALOPERIDOL 5 MG TABLET PO PRN ×3 (04:40→18:04)
[2020-11-25] MEDS ORDERED: LORazepam 2 MG/ML VIAL ONE (05:18)
[2020-11-25] MEDS ORDERED: DiphenhydrAMINE HCL 50 MG/ML VIAL ONE (05:19)
[2020-11-25] MEDS ORDERED: HALOPERIDOL LACTATE 5 MG/ML VIAL ONE (05:19)
[2020-11-25] MEDS ORDERED: DiphenhydrAMINE HCL 50 MG/ML VIAL IM ONE (05:30)
[2020-11-25] MEDS ORDERED: HALOPERIDOL LACTATE 5 MG/ML VIAL IM ONE (05:30)
[2020-11-25] MEDS ORDERED: LORazepam 2 MG/ML VIAL IM ONE (05:30)
[2020-11-25] MEDS: BENZTROPINE MESYLATE 1 MG TABLET PO SCH ×2 (13:23→16:47)
[2020-11-25 16:11] VITALS: BP 103/65
[2020-11-25] MEDS: OLANZapine 10 MG TABLET PO SCH (16:47)
[2020-11-25] MEDS ORDERED: LITHIUM CARBONATE 600 MG CAPSULE PO SCH (17:00)
[2020-11-26] MEDS: HALOPERIDOL 5 MG TABLET PO PRN ×4 (00:40→13:54)
[2020-11-26 00:51] VITALS: BP 132/79
[2020-11-26] MEDS: GABAPENTIN 300 MG CAPSULE PO SCH ×2 (08:02→16:49)
[2020-11-26] MEDS: OLANZapine 10 MG TABLET PO SCH ×2 (08:02→16:49)
[2020-11-26] MEDS: BENZTROPINE MESYLATE 1 MG TABLET PO SCH ×3 (08:02→16:49)
[2020-11-26 08:14] VITALS: BP 130/75
[2020-11-26 16:23] VITALS: BP 124/78
[2020-11-27 02:36] VITALS: BP 109/76
[2020-11-27] MEDS: HALOPERIDOL 5 MG TABLET PO PRN ×5 (02:48→20:40)
[2020-11-27 08:12] VITALS: BP 111/73
[2020-11-27] MEDS: OLANZapine 10 MG TABLET PO SCH ×2 (08:16→16:29)
[2020-11-27] MEDS: GABAPENTIN 300 MG CAPSULE PO SCH ×2 (08:16→16:29)
[2020-11-27] MEDS: BENZTROPINE MESYLATE 1 MG TABLET PO SCH ×5 (08:16→16:29)
[2020-11-28 02:34] VITALS: BP 121/76
[2020-11-28] MEDS: HALOPERIDOL 5 MG TABLET PO PRN ×4 (02:35→20:40)
[2020-11-28 08:07] VITALS: BP 114/74
[2020-11-28] MEDS: GABAPENTIN 300 MG CAPSULE PO SCH ×2 (08:11→17:00)
[2020-11-28] MEDS: OLANZapine 10 MG TABLET PO SCH ×2 (08:11→17:00)
[2020-11-28] MEDS: BENZTROPINE MESYLATE 1 MG TABLET PO SCH ×4 (08:13→17:00)
[2020-11-28 16:38] VITALS: BP 127/82
[2020-11-29 02:09] VITALS: BP 126/80
[2020-11-29] MEDS: HALOPERIDOL 5 MG TABLET PO PRN ×4 (02:11→20:39)
[2020-11-29 07:47] VITALS: BP 145/89
[2020-11-29] MEDS: GABAPENTIN 300 MG CAPSULE PO SCH ×3 (09:17→16:02)
[2020-11-29] MEDS: BENZTROPINE MESYLATE 1 MG TABLET PO SCH ×3 (09:17→16:01)
[2020-11-29] MEDS: OLANZapine 10 MG TABLET PO SCH ×2 (09:17→16:01)
[2020-11-29] MEDS ORDERED: DiphenhydrAMINE HCL 50 MG/ML VIAL ONE (09:30)
[2020-11-29] MEDS ORDERED: HALOPERIDOL LACTATE 5 MG/ML VIAL ONE (09:30)
[2020-11-29] MEDS ORDERED: LORazepam 2 MG/ML VIAL ONE (09:30)
[2020-11-29] MEDS ORDERED: HALOPERIDOL LACTATE 5 MG/ML VIAL IM ONE (10:00)
[2020-11-29] MEDS ORDERED: DiphenhydrAMINE HCL 50 MG/ML VIAL IM ONE (10:00)
[2020-11-29] MEDS ORDERED: LORazepam 2 MG/ML VIAL IM ONE (10:00)
[2020-11-29 14:06] VITALS: BP 145/89
[2020-11-29 16:30] VITALS: BP 126/80
[2020-11-29] MEDS: LORazepam 2 MG TABLET PO PRN (20:44)
[2020-11-30 01:42] VITALS: BP 121/68
[2020-11-30] MEDS: HALOPERIDOL 5 MG TABLET PO PRN ×5 (03:43→16:25)
[2020-11-30] MEDS: BENZTROPINE MESYLATE 1 MG TABLET PO SCH ×3 (07:57→16:07)
[2020-11-30] MEDS: GABAPENTIN 300 MG CAPSULE PO SCH ×2 (07:57→16:07)
[2020-11-30] MEDS: OLANZapine 10 MG TABLET PO SCH ×2 (07:57→16:07)
[2020-11-30 08:23] VITALS: BP 111/76
[2020-11-30] MEDS: LORazepam 2 MG TABLET PO PRN ×2 (14:14→18:14)
[2020-12-01] MEDS: HALOPERIDOL 5 MG TABLET PO PRN ×4 (00:04→16:22)
[2020-12-01 00:13] VITALS: BP 110/75
[2020-12-01] MEDS ORDERED: LORazepam 2 MG/ML VIAL ONE (05:18)
[2020-12-01] MEDS ORDERED: DiphenhydrAMINE HCL 50 MG/ML VIAL ONE (05:18)
[2020-12-01] MEDS ORDERED: HALOPERIDOL LACTATE 5 MG/ML VIAL ONE (05:19)
[2020-12-01] MEDS ORDERED: HALOPERIDOL LACTATE 5 MG/ML VIAL IM ONE (06:00)
[2020-12-01] MEDS ORDERED: LORazepam 2 MG/ML VIAL IM ONE (06:00)
[2020-12-01] MEDS ORDERED: DiphenhydrAMINE HCL 50 MG/ML VIAL IM ONE (06:00)
[2020-12-01 06:45] VITALS: BP 112/75
[2020-12-01] MEDS: GABAPENTIN 300 MG CAPSULE PO SCH ×2 (08:20→16:03)
[2020-12-01] MEDS: BENZTROPINE MESYLATE 1 MG TABLET PO SCH ×3 (08:20→16:03)
[2020-12-01] MEDS: OLANZapine 10 MG TABLET PO SCH ×3 (08:22→16:03)
[2020-12-01 08:46] VITALS: BP 120/80
[2020-12-01] MEDS: LORazepam 2 MG TABLET PO PRN ×2 (09:44→17:10)
[2020-12-01 16:15] VITALS: BP 120/82
[2020-12-02] MEDS: HALOPERIDOL 5 MG TABLET PO PRN ×4 (00:10→19:45)
[2020-12-02] MEDS: LORazepam 2 MG TABLET PO PRN ×3 (00:43→19:45)
[2020-12-02 03:30] VITALS: BP 118/78
[2020-12-02] MEDS: BENZTROPINE MESYLATE 1 MG TABLET PO SCH ×3 (08:18→16:01)
[2020-12-02] MEDS: OLANZapine 10 MG TABLET PO SCH ×2 (08:18→16:01)
[2020-12-02] MEDS: GABAPENTIN 300 MG CAPSULE PO SCH ×2 (08:18→16:01)
[2020-12-02 08:36] VITALS: BP 111/75
[2020-12-02 16:14] VITALS: BP 127/76
[2020-12-03 01:08] VITALS: BP 128/82
[2020-12-03] MEDS: HALOPERIDOL 5 MG TABLET PO PRN ×5 (01:10→19:33)
[2020-12-03] MEDS: LORazepam 2 MG TABLET PO PRN ×2 (02:02→19:49)
[2020-12-03] MEDS: OLANZapine 10 MG TABLET PO SCH ×2 (07:58→16:06)
[2020-12-03] MEDS: GABAPENTIN 300 MG CAPSULE PO SCH ×2 (07:59→16:06)
[2020-12-03] MEDS: BENZTROPINE MESYLATE 1 MG TABLET PO SCH ×3 (08:00→17:00)
[2020-12-03 09:09] VITALS: BP 107/66
[2020-12-03 17:08] VITALS: BP 125/87
[2020-12-04] MEDS: HALOPERIDOL 5 MG TABLET PO PRN ×4 (00:09→22:57)
[2020-12-04] MEDS: LORazepam 2 MG TABLET PO PRN ×3 (00:11→17:22)
[2020-12-04 04:05] VITALS: BP 111/77
[2020-12-04] MEDS: GABAPENTIN 300 MG CAPSULE PO SCH ×2 (08:01→16:08)
[2020-12-04] MEDS: OLANZapine 10 MG TABLET PO SCH ×2 (08:01→16:08)
[2020-12-04 08:10] VITALS: BP 133/81
[2020-12-04] MEDS: BENZTROPINE MESYLATE 1 MG TABLET PO SCH ×3 (09:00→16:09)
[2020-12-04] MEDS: NICOTINE 14 MG/24 HOUR PATCH TD SCH (13:39)
[2020-12-04 16:12] VITALS: BP 125/78
[2020-12-05 00:36] VITALS: BP 132/86
[2020-12-05] MEDS: LORazepam 2 MG TABLET PO PRN ×3 (01:02→17:52)
[2020-12-05] MEDS: HALOPERIDOL 5 MG TABLET PO PRN (06:32)
[2020-12-05] MEDS: BENZTROPINE MESYLATE 1 MG TABLET PO SCH ×3 (08:06→17:00)
[2020-12-05] MEDS: OLANZapine 10 MG TABLET PO SCH ×2 (08:06→17:00)
[2020-12-05] MEDS: GABAPENTIN 300 MG CAPSULE PO SCH ×2 (08:06→17:00)
[2020-12-05] MEDS: NICOTINE 14 MG/24 HOUR PATCH TD SCH (08:11)
[2020-12-05 09:07] VITALS: BP 115/77
[2020-12-05 17:34] VITALS: BP 119/67
[2020-12-06 01:12] VITALS: BP 120/82
[2020-12-06] MEDS: LORazepam 2 MG TABLET PO PRN ×4 (01:14→20:07)
[2020-12-06] MEDS: NICOTINE 14 MG/24 HOUR PATCH TD SCH (08:10)
[2020-12-06] MEDS: OLANZapine 10 MG TABLET PO SCH ×2 (08:11→16:06)
[2020-12-06] MEDS: GABAPENTIN 300 MG CAPSULE PO SCH ×2 (08:11→16:07)
[2020-12-06] MEDS: BENZTROPINE MESYLATE 1 MG TABLET PO SCH ×3 (08:13→16:07)
[2020-12-06] MEDS: HALOPERIDOL 5 MG TABLET PO PRN (16:07)
[2020-12-07 01:12] VITALS: BP 110/70
[2020-12-07 08:33] VITALS: BP 118/80
[2020-12-07] MEDS: OLANZapine 10 MG TABLET PO SCH ×2 (08:50→16:48)
[2020-12-07] MEDS: GABAPENTIN 300 MG CAPSULE PO SCH ×2 (08:50→16:48)
[2020-12-07] MEDS: NICOTINE 14 MG/24 HOUR PATCH TD SCH (08:50)
[2020-12-07] MEDS: BENZTROPINE MESYLATE 1 MG TABLET PO SCH ×3 (08:50→16:50)
[2020-12-07 14:57] LABS: GLUCOMETER DEV NAME(LOC) POC.BV
[2020-12-07 16:06] VITALS: BP 120/82
[2020-12-07] MEDS: LORazepam 2 MG TABLET PO PRN (20:04)
[2020-12-08 05:17] VITALS: BP 118/70
[2020-12-08 08:20] VITALS: BP 140/95
[2020-12-08] MEDS: BENZTROPINE MESYLATE 1 MG TABLET PO SCH ×4 (08:47→16:36)
[2020-12-08] MEDS: OLANZapine 10 MG TABLET PO SCH ×2 (08:48→16:36)
[2020-12-08] MEDS: NICOTINE 14 MG/24 HOUR PATCH TD SCH (08:48)
[2020-12-08] MEDS: GABAPENTIN 300 MG CAPSULE PO SCH ×2 (08:48→16:35)
[2020-12-09 02:19] VITALS: BP 121/81
[2020-12-09] MEDS: GABAPENTIN 300 MG CAPSULE PO SCH ×2 (08:53→16:01)
[2020-12-09] MEDS: BENZTROPINE MESYLATE 1 MG TABLET PO SCH ×3 (08:53→16:02)
[2020-12-09] MEDS: OLANZapine 10 MG TABLET PO SCH ×2 (08:53→16:02)
[2020-12-09 09:00] VITALS: BP 127/72
[2020-12-09] MEDS: NICOTINE 14 MG/24 HOUR PATCH TD SCH (09:00)
[2020-12-09] MEDS: HALOPERIDOL 5 MG TABLET PO PRN (22:38)
[2020-12-10 00:04] VITALS: BP 115/77
[2020-12-10] MEDS: GABAPENTIN 300 MG CAPSULE PO SCH ×2 (08:39→16:13)
[2020-12-10] MEDS: OLANZapine 10 MG TABLET PO SCH ×2 (08:39→16:13)
[2020-12-10] MEDS: BENZTROPINE MESYLATE 1 MG TABLET PO SCH ×3 (08:39→16:13)
[2020-12-10] MEDS: NICOTINE 14 MG/24 HOUR PATCH TD SCH (08:40)
[2020-12-10] MEDS: LORazepam 2 MG TABLET PO PRN (09:14)
[2020-12-11 02:35] VITALS: BP 114/73
[2020-12-11] MEDS: BENZTROPINE MESYLATE 1 MG TABLET PO SCH ×3 (08:33→17:00)
[2020-12-11] MEDS: OLANZapine 10 MG TABLET PO SCH ×2 (08:33→17:00)
[2020-12-11] MEDS: GABAPENTIN 300 MG CAPSULE PO SCH ×2 (08:33→16:20)
[2020-12-11] MEDS: NICOTINE 14 MG/24 HOUR PATCH TD SCH (08:33)
[2020-12-11 09:10] VITALS: BP 113/72
[2020-12-11] MEDS ORDERED: DiphenhydrAMINE HCL 50 MG/ML VIAL ONE (16:55)
[2020-12-11] MEDS ORDERED: LORazepam 2 MG/ML VIAL ONE (16:55)
[2020-12-11] MEDS ORDERED: HALOPERIDOL LACTATE 5 MG/ML VIAL ONE (16:55)
[2020-12-11] MEDS ORDERED: HALOPERIDOL LACTATE 5 MG/ML VIAL IM ONE (17:00)
[2020-12-11] MEDS ORDERED: LORazepam 2 MG/ML VIAL IM ONE (17:00)
[2020-12-11] MEDS ORDERED: DiphenhydrAMINE HCL 50 MG/ML VIAL IM ONE (17:00)
[2020-12-11 18:21] VITALS: BP 112/73
[2020-12-12 02:31] VITALS: BP 108/78
[2020-12-12] MEDS: NICOTINE 14 MG/24 HOUR PATCH TD SCH (08:44)
[2020-12-12] MEDS: GABAPENTIN 300 MG CAPSULE PO SCH ×2 (08:44→16:08)
[2020-12-12] MEDS: OLANZapine 10 MG TABLET PO SCH ×2 (08:44→16:30)
[2020-12-12] MEDS: BENZTROPINE MESYLATE 1 MG TABLET PO SCH ×4 (08:44→16:30)
[2020-12-12 10:02] VITALS: BP 114/76
[2020-12-12 17:36] VITALS: BP 113/72
[2020-12-13 00:55] VITALS: BP 121/75
[2020-12-13] MEDS: BENZTROPINE MESYLATE 1 MG TABLET PO SCH ×3 (08:09→16:04)
[2020-12-13] MEDS: GABAPENTIN 300 MG CAPSULE PO SCH ×2 (08:09→16:04)
[2020-12-13 08:26] VITALS: BP 129/77
[2020-12-13] MEDS: OLANZapine 10 MG TABLET PO SCH ×2 (09:36→16:04)
[2020-12-13] MEDS: NICOTINE 14 MG/24 HOUR PATCH TD SCH (09:46)
[2020-12-14 03:21] VITALS: BP 123/78
[2020-12-14 08:22] VITALS: BP 147/90
[2020-12-14] MEDS: NICOTINE 14 MG/24 HOUR PATCH TD SCH (09:00)
[2020-12-14] MEDS: BENZTROPINE MESYLATE 1 MG TABLET PO SCH ×3 (09:00→16:34)
[2020-12-14] MEDS: OLANZapine 10 MG TABLET PO SCH ×2 (09:19→16:34)
[2020-12-14] MEDS: GABAPENTIN 300 MG CAPSULE PO SCH ×2 (09:19→16:34)
[2020-12-14 16:18] VITALS: BP 111/79
[2020-12-15 06:33] VITALS: BP 122/80
[2020-12-15] MEDS: OLANZapine 10 MG TABLET PO SCH ×2 (08:37→16:07)
[2020-12-15] MEDS: GABAPENTIN 300 MG CAPSULE PO SCH ×2 (08:37→16:07)
[2020-12-15] MEDS: BENZTROPINE MESYLATE 1 MG TABLET PO SCH ×3 (08:37→16:07)
[2020-12-15] MEDS: NICOTINE 14 MG/24 HOUR PATCH TD SCH (08:38)
[2020-12-15] MEDS ORDERED: LORazepam 2 MG/ML VIAL ONE (11:11)
[2020-12-15] MEDS ORDERED: DiphenhydrAMINE HCL 50 MG/ML VIAL ONE (11:11)
[2020-12-15] MEDS ORDERED: HALOPERIDOL LACTATE 5 MG/ML VIAL ONE (11:11)
[2020-12-15] MEDS ORDERED: DiphenhydrAMINE HCL 50 MG/ML VIAL IM ONE (11:15)
[2020-12-15] MEDS ORDERED: HALOPERIDOL LACTATE 5 MG/ML VIAL IM ONE (11:15)
[2020-12-15] MEDS ORDERED: LORazepam 2 MG/ML VIAL IM ONE (11:15)
[2020-12-16 01:27] VITALS: BP 108/72
[2020-12-16] MEDS: BENZTROPINE MESYLATE 1 MG TABLET PO SCH ×3 (09:00→17:00)
[2020-12-16] MEDS: NICOTINE 14 MG/24 HOUR PATCH TD SCH (09:00)
[2020-12-16] MEDS: OLANZapine 10 MG TABLET PO SCH ×3 (09:05→17:57)
[2020-12-16] MEDS: GABAPENTIN 300 MG CAPSULE PO SCH ×4 (09:05→17:57)
[2020-12-17 00:48] VITALS: BP 111/72
[2020-12-17 08:24] VITALS: BP 108/68
[2020-12-17] MEDS: BENZTROPINE MESYLATE 1 MG TABLET PO SCH ×4 (09:00→16:16)
[2020-12-17] MEDS: NICOTINE 14 MG/24 HOUR PATCH TD SCH (09:00)
[2020-12-17] MEDS: OLANZapine 10 MG TABLET PO SCH ×2 (09:04→16:13)
[2020-12-17] MEDS: GABAPENTIN 300 MG CAPSULE PO SCH ×3 (09:04→16:13)
[2020-12-17 16:09] VITALS: BP 123/80
[2020-12-18 00:25] VITALS: BP 121/79
[2020-12-18] MEDS: OLANZapine 10 MG TABLET PO SCH ×2 (08:10→16:15)
[2020-12-18] MEDS: BENZTROPINE MESYLATE 1 MG TABLET PO SCH ×3 (08:10→16:18)
[2020-12-18] MEDS: GABAPENTIN 300 MG CAPSULE PO SCH ×3 (08:10→16:18)
[2020-12-18] MEDS: NICOTINE 14 MG/24 HOUR PATCH TD SCH (08:11)
[2020-12-18 16:12] VITALS: BP 122/78
[2020-12-19 01:58] VITALS: BP 126/87
[2020-12-19] MEDS: OLANZapine 10 MG TABLET PO SCH ×2 (08:13→16:16)
[2020-12-19] MEDS: GABAPENTIN 300 MG CAPSULE PO SCH ×3 (08:13→16:17)
[2020-12-19] MEDS: BENZTROPINE MESYLATE 1 MG TABLET PO SCH ×3 (08:13→16:17)
[2020-12-19] MEDS: NICOTINE 14 MG/24 HOUR PATCH TD SCH (08:13)
[2020-12-19 08:38] VITALS: BP 118/66
[2020-12-19 16:15] VITALS: BP 107/77
[2020-12-20 01:05] VITALS: BP 107/77
[2020-12-20] MEDS: NICOTINE 14 MG/24 HOUR PATCH TD SCH (08:37)
[2020-12-20] MEDS: BENZTROPINE MESYLATE 1 MG TABLET PO SCH ×3 (08:37→16:28)
[2020-12-20] MEDS: OLANZapine 10 MG TABLET PO SCH ×2 (08:37→16:29)
[2020-12-20] MEDS: GABAPENTIN 300 MG CAPSULE PO SCH ×3 (08:37→16:29)
[2020-12-20 08:55] VITALS: BP 108/66
[2020-12-21 00:40] VITALS: BP 115/68
[2020-12-21 08:23] VITALS: BP 119/80
[2020-12-21] MEDS: OLANZapine 10 MG TABLET PO SCH ×2 (08:43→16:15)
[2020-12-21] MEDS: BENZTROPINE MESYLATE 1 MG TABLET PO SCH ×3 (08:43→17:00)
[2020-12-21] MEDS: GABAPENTIN 300 MG CAPSULE PO SCH ×3 (08:43→16:15)
[2020-12-21] MEDS: NICOTINE 14 MG/24 HOUR PATCH TD SCH (08:43)
[2020-12-21 16:07] VITALS: BP 121/82
[2020-12-22 01:19] VITALS: BP 112/64
[2020-12-22 08:20] VITALS: BP 112/72
[2020-12-22] MEDS: NICOTINE 14 MG/24 HOUR PATCH TD SCH (08:25)
[2020-12-22] MEDS: OLANZapine 10 MG TABLET PO SCH ×2 (08:25→16:31)
[2020-12-22] MEDS: GABAPENTIN 300 MG CAPSULE PO SCH ×3 (08:26→16:31)
[2020-12-22] MEDS: BENZTROPINE MESYLATE 1 MG TABLET PO SCH ×4 (08:26→16:31)
[2020-12-22 16:25] VITALS: BP 121/81
[2020-12-23 00:51] VITALS: BP 127/88
[2020-12-23] MEDS ORDERED: TUBERCULIN, PURIFIED PROTEIN DERIVATIVE 5 TU/0.1 ML SYRINGE ID ONE (08:00)
[2020-12-23 08:21] VITALS: BP 117/74
[2020-12-23] MEDS: NICOTINE 14 MG/24 HOUR PATCH TD SCH (08:30)
[2020-12-23] MEDS: GABAPENTIN 300 MG CAPSULE PO SCH ×3 (08:30→16:04)
[2020-12-23] MEDS: OLANZapine 10 MG TABLET PO SCH ×2 (08:30→16:04)
[2020-12-23] MEDS: BENZTROPINE MESYLATE 1 MG TABLET PO SCH ×3 (08:30→16:04)
[2020-12-24 01:16] VITALS: BP 105/65
[2020-12-24] MEDS ORDERED: LORazepam 2 MG/ML VIAL IM ONE (08:15)
[2020-12-24] MEDS ORDERED: DiphenhydrAMINE HCL 50 MG/ML VIAL IM ONE (08:15)
[2020-12-24] MEDS ORDERED: HALOPERIDOL LACTATE 5 MG/ML VIAL IM ONE (08:15)
[2020-12-24 08:17] VITALS: BP 109/69
[2020-12-24] MEDS: NICOTINE 14 MG/24 HOUR PATCH TD SCH (09:00)
[2020-12-24] MEDS: BENZTROPINE MESYLATE 1 MG TABLET PO SCH ×4 (09:00→16:35)
[2020-12-24] MEDS: GABAPENTIN 300 MG CAPSULE PO SCH ×3 (09:02→16:35)
[2020-12-24] MEDS: OLANZapine 10 MG TABLET PO SCH ×2 (09:02→16:35)
[2020-12-24 16:21] VITALS: BP 110/78
[2020-12-25 00:30] VITALS: BP 104/71
[2020-12-25] MEDS: NICOTINE 14 MG/24 HOUR PATCH TD SCH ×2 (08:34→09:00)
[2020-12-25] MEDS: OLANZapine 10 MG TABLET PO SCH ×2 (08:34→16:12)
[2020-12-25] MEDS: BENZTROPINE MESYLATE 1 MG TABLET PO SCH ×7 (08:34→17:10)
[2020-12-25] MEDS: GABAPENTIN 300 MG CAPSULE PO SCH ×3 (08:34→16:11)
[2020-12-25 10:32] VITALS: BP 127/81
[2020-12-25 16:18] VITALS: BP 128/70
[2020-12-26 00:17] VITALS: BP 116/64
[2020-12-26 07:07] LABS: COVID AG,FIA SOURCE NASAL SWAB
[2020-12-26] MEDS: BENZTROPINE MESYLATE 1 MG TABLET PO SCH ×3 (08:35→16:51)
[2020-12-26] MEDS: GABAPENTIN 300 MG CAPSULE PO SCH ×3 (08:35→16:52)
[2020-12-26] MEDS: NICOTINE 14 MG/24 HOUR PATCH TD SCH (08:35)
[2020-12-26] MEDS: OLANZapine 10 MG TABLET PO SCH ×2 (08:35→16:52)
[2020-12-26 08:37] VITALS: BP 113/71
[2020-12-26 16:32] VITALS: BP 109/69
[2020-12-27 04:55] VITALS: BP 118/71
[2020-12-27] MEDS: GABAPENTIN 300 MG CAPSULE PO SCH ×3 (08:27→16:44)
[2020-12-27] MEDS: NICOTINE 14 MG/24 HOUR PATCH TD SCH ×2 (08:27→09:58)
[2020-12-27] MEDS: OLANZapine 10 MG TABLET PO SCH ×2 (08:27→16:44)
[2020-12-27] MEDS: BENZTROPINE MESYLATE 1 MG TABLET PO SCH ×3 (08:27→16:51)
[2020-12-27 09:44] VITALS: BP 113/71
[2020-12-27] MEDS ORDERED: ZOLPIDEM TARTRATE 10 MG TABLET PO PRN (11:00)
[2020-12-27] MEDS ORDERED: LORazepam 2 MG/ML VIAL ONE (11:09)
[2020-12-27] MEDS ORDERED: ChlorproMAZINE HCL 50 MG/2 ML AMP ONE (11:09)
[2020-12-27] MEDS ORDERED: DiphenhydrAMINE HCL 50 MG/ML VIAL ONE (11:09)
[2020-12-27] MEDS ORDERED: DiphenhydrAMINE HCL 50 MG/ML VIAL IM ONE (11:15)
[2020-12-27] MEDS ORDERED: ChlorproMAZINE HCL 50 MG/2 ML AMP IM ONE (11:15)
[2020-12-27] MEDS ORDERED: LORazepam 2 MG/ML VIAL IM ONE (11:15)
[2020-12-27] MEDS: ZOLPIDEM TARTRATE 10 MG TABLET PO SCH (21:00)
[2020-12-28 01:44] VITALS: BP 113/75
[2020-12-28] MEDS: GABAPENTIN 300 MG CAPSULE PO SCH ×3 (08:08→16:04)
[2020-12-28] MEDS: OLANZapine 10 MG TABLET PO SCH ×2 (08:08→16:04)
[2020-12-28] MEDS: BENZTROPINE MESYLATE 1 MG TABLET PO SCH ×3 (08:10→16:04)
[2020-12-28] MEDS: NICOTINE 14 MG/24 HOUR PATCH TD SCH (08:10)
[2020-12-28 08:21] VITALS: BP 110/65
[2020-12-28 16:22] VITALS: BP 115/72
[2020-12-28] MEDS ORDERED: LORazepam 2 MG/ML VIAL IM ONE (20:45)
[2020-12-28] MEDS ORDERED: DiphenhydrAMINE HCL 50 MG/ML VIAL IM ONE (20:45)
[2020-12-28] MEDS ORDERED: ChlorproMAZINE HCL 50 MG/2 ML AMP IM ONE (20:45)
[2020-12-28] MEDS: ZOLPIDEM TARTRATE 10 MG TABLET PO SCH (20:52)
[2020-12-29 05:50] VITALS: BP 120/79
[2020-12-29] MEDS: GABAPENTIN 300 MG CAPSULE PO SCH ×3 (08:02→16:53)
[2020-12-29] MEDS: OLANZapine 10 MG TABLET PO SCH ×2 (08:02→16:53)
[2020-12-29 08:57] VITALS: BP 117/70
[2020-12-29] MEDS: BENZTROPINE MESYLATE 1 MG TABLET PO SCH ×3 (09:00→16:53)
[2020-12-29] MEDS: NICOTINE 14 MG/24 HOUR PATCH TD SCH (09:42)
[2020-12-29] MEDS ORDERED: ChlorproMAZINE HCL 50 MG/2 ML AMP ONE (10:50)
[2020-12-29] MEDS ORDERED: LORazepam 2 MG/ML VIAL ONE (10:50)
[2020-12-29] MEDS ORDERED: DiphenhydrAMINE HCL 50 MG/ML VIAL ONE (10:50)
[2020-12-29] MEDS ORDERED: LORazepam 2 MG/ML VIAL IM ONE (11:15)
[2020-12-29] MEDS ORDERED: DiphenhydrAMINE HCL 50 MG/ML VIAL IM ONE (11:15)
[2020-12-29] MEDS ORDERED: ChlorproMAZINE HCL 50 MG/2 ML AMP IM ONE (11:15)
[2020-12-29] MEDS: ZOLPIDEM TARTRATE 10 MG TABLET PO SCH (21:00)
[2020-12-30 05:26] VITALS: BP 129/78
[2020-12-30] MEDS: GABAPENTIN 300 MG CAPSULE PO SCH ×3 (08:23→16:25)
[2020-12-30] MEDS: OLANZapine 10 MG TABLET PO SCH ×2 (08:23→16:25)
[2020-12-30] MEDS: NICOTINE 14 MG/24 HOUR PATCH TD SCH (08:26)
[2020-12-30] MEDS: BENZTROPINE MESYLATE 1 MG TABLET PO SCH ×3 (08:26→16:25)
[2020-12-30 16:17] VITALS: BP 122/81
[2020-12-30] MEDS: ZOLPIDEM TARTRATE 10 MG TABLET PO SCH (21:00)
[2020-12-31 00:44] VITALS: BP 125/79
[2020-12-31] MEDS: BENZTROPINE MESYLATE 1 MG TABLET PO SCH ×3 (09:00→17:00)
[2020-12-31] MEDS: NICOTINE 14 MG/24 HOUR PATCH TD SCH (09:00)
[2020-12-31] MEDS: OLANZapine 10 MG TABLET PO SCH ×2 (09:41→17:36)
[2020-12-31] MEDS: GABAPENTIN 300 MG CAPSULE PO SCH ×3 (09:41→17:10)
[2020-12-31] MEDS: ZOLPIDEM TARTRATE 10 MG TABLET PO SCH (20:46)
[2021-01-01 00:55] VITALS: BP 108/73
[2021-01-01 08:41] VITALS: BP 137/78
[2021-01-01] MEDS: NICOTINE 14 MG/24 HOUR PATCH TD SCH (08:42)
[2021-01-01] MEDS: OLANZapine 10 MG TABLET PO SCH ×2 (08:42→16:12)
[2021-01-01] MEDS: BENZTROPINE MESYLATE 1 MG TABLET PO SCH ×3 (08:42→16:12)
[2021-01-01] MEDS: GABAPENTIN 300 MG CAPSULE PO SCH ×3 (08:42→16:12)
[2021-01-01 16:11] VITALS: BP 130/71
[2021-01-01] MEDS: ZOLPIDEM TARTRATE 10 MG TABLET PO SCH (20:37)
[2021-01-02 02:41] VITALS: BP 130/72
[2021-01-02] MEDS: BENZTROPINE MESYLATE 1 MG TABLET PO SCH ×3 (08:16→16:04)
[2021-01-02] MEDS: GABAPENTIN 300 MG CAPSULE PO SCH ×3 (08:16→16:04)
[2021-01-02] MEDS: OLANZapine 10 MG TABLET PO SCH ×2 (08:16→16:04)
[2021-01-02] MEDS: NICOTINE 14 MG/24 HOUR PATCH TD SCH (08:20)
[2021-01-02 09:18] VITALS: BP 108/61
[2021-01-02] MEDS: ZOLPIDEM TARTRATE 10 MG TABLET PO SCH (21:00)
[2021-01-03 01:17] VITALS: BP 111/86
[2021-01-03] MEDS ORDERED: HALOPERIDOL LACTATE 5 MG/ML VIAL IM ONE (02:15)
[2021-01-03] MEDS ORDERED: LORazepam 2 MG/ML VIAL IM ONE (02:15)
[2021-01-03] MEDS ORDERED: DiphenhydrAMINE HCL 50 MG/ML VIAL IM ONE (02:15)
[2021-01-03 08:16] VITALS: BP 109/70
[2021-01-03] MEDS: NICOTINE 14 MG/24 HOUR PATCH TD SCH (09:00)
[2021-01-03] MEDS: BENZTROPINE MESYLATE 1 MG TABLET PO SCH ×3 (09:00→16:03)
[2021-01-03] MEDS: GABAPENTIN 300 MG CAPSULE PO SCH ×3 (09:06→16:03)
[2021-01-03] MEDS: OLANZapine 10 MG TABLET PO SCH ×2 (09:06→16:03)
[2021-01-03 16:25] VITALS: BP 118/78
[2021-01-03] MEDS: ZOLPIDEM TARTRATE 10 MG TABLET PO SCH (21:00)
[2021-01-04 00:59] VITALS: BP 120/78
[2021-01-04] MEDS: OLANZapine 10 MG TABLET PO SCH ×2 (08:18→17:00)
[2021-01-04] MEDS: GABAPENTIN 300 MG CAPSULE PO SCH ×3 (08:18→17:36)
[2021-01-04] MEDS: BENZTROPINE MESYLATE 1 MG TABLET PO SCH ×3 (08:33→17:00)
[2021-01-04] MEDS: NICOTINE 14 MG/24 HOUR PATCH TD SCH (08:33)
[2021-01-04] MEDS ORDERED: ChlorproMAZINE HCL 50 MG/2 ML AMP ONE (09:55)
[2021-01-04] MEDS ORDERED: DiphenhydrAMINE HCL 50 MG/ML VIAL ONE (09:55)
[2021-01-04] MEDS ORDERED: LORazepam 2 MG/ML VIAL ONE (09:55)
[2021-01-04] MEDS ORDERED: ChlorproMAZINE HCL 50 MG/2 ML AMP IM ONE (10:00)
[2021-01-04] MEDS ORDERED: DiphenhydrAMINE HCL 50 MG/ML VIAL IM ONE (10:00)
[2021-01-04] MEDS ORDERED: LORazepam 2 MG/ML VIAL IM ONE (10:00)
[2021-01-05 05:46] VITALS: BP 118/78
[2021-01-05] MEDS: NICOTINE 14 MG/24 HOUR PATCH TD SCH (08:13)
[2021-01-05] MEDS: OLANZapine 10 MG TABLET PO SCH ×2 (08:13→16:28)
[2021-01-05] MEDS: GABAPENTIN 300 MG CAPSULE PO SCH ×3 (08:13→16:28)
[2021-01-05] MEDS: BENZTROPINE MESYLATE 1 MG TABLET PO SCH ×3 (08:15→16:27)
[2021-01-05] MEDS ORDERED: LORazepam 2 MG/ML VIAL IM ONE (10:15)
[2021-01-05] MEDS ORDERED: ChlorproMAZINE HCL 50 MG/2 ML AMP IM ONE (10:15)
[2021-01-05] MEDS ORDERED: DiphenhydrAMINE HCL 50 MG/ML VIAL IM ONE (10:15)
[2021-01-05 16:24] VITALS: BP 112/73
[2021-01-06 01:02] VITALS: BP 116/74
[2021-01-06] MEDS: OLANZapine 10 MG TABLET PO SCH ×2 (08:57→16:25)
[2021-01-06] MEDS: GABAPENTIN 300 MG CAPSULE PO SCH ×3 (08:57→16:25)
[2021-01-06] MEDS: NICOTINE 14 MG/24 HOUR PATCH TD SCH (08:57)
[2021-01-06] MEDS: BENZTROPINE MESYLATE 1 MG TABLET PO SCH ×3 (08:57→16:25)
[2021-01-07 01:22] VITALS: BP 114/61
[2021-01-07] MEDS: OLANZapine 10 MG TABLET PO SCH ×2 (08:07→16:07)
[2021-01-07] MEDS: BENZTROPINE MESYLATE 1 MG TABLET PO SCH ×3 (08:09→16:07)
[2021-01-07] MEDS: NICOTINE 14 MG/24 HOUR PATCH TD SCH ×2 (08:09→09:05)
[2021-01-07] MEDS: GABAPENTIN 300 MG CAPSULE PO SCH ×3 (08:09→16:05)
[2021-01-08 03:59] VITALS: BP 119/71
[2021-01-08] MEDS: OLANZapine 10 MG TABLET PO SCH ×2 (08:17→17:00)
[2021-01-08] MEDS: GABAPENTIN 300 MG CAPSULE PO SCH ×3 (08:17→16:01)
[2021-01-08] MEDS: NICOTINE 14 MG/24 HOUR PATCH TD SCH (08:19)
[2021-01-08] MEDS: BENZTROPINE MESYLATE 1 MG TABLET PO SCH ×3 (08:19→17:00)
[2021-01-08 08:42] VITALS: BP 115/65
[2021-01-08 16:04] VITALS: BP 111/71
[2021-01-09 01:05] VITALS: BP 115/73
[2021-01-09] MEDS: GABAPENTIN 300 MG CAPSULE PO SCH ×3 (08:26→16:16)
[2021-01-09] MEDS: BENZTROPINE MESYLATE 1 MG TABLET PO SCH ×3 (08:27→16:17)
[2021-01-09] MEDS: NICOTINE 14 MG/24 HOUR PATCH TD SCH (08:27)
[2021-01-09] MEDS: OLANZapine 10 MG TABLET PO SCH ×2 (08:27→16:17)
[2021-01-09 08:30] VITALS: BP 110/72
[2021-01-09 16:25] VITALS: BP 108/70
[2021-01-10 00:31] VITALS: BP 117/75
[2021-01-10] MEDS: OLANZapine 10 MG TABLET PO SCH ×2 (08:22→16:04)
[2021-01-10] MEDS: GABAPENTIN 300 MG CAPSULE PO SCH ×3 (08:23→16:03)
[2021-01-10] MEDS: BENZTROPINE MESYLATE 1 MG TABLET PO SCH ×3 (08:25→16:04)
[2021-01-10] MEDS: NICOTINE 14 MG/24 HOUR PATCH TD SCH (08:25)
[2021-01-10 16:16] VITALS: BP 103/67
[2021-01-10] MEDS ORDERED: LORazepam 2 MG/ML VIAL ONE (19:24)
[2021-01-10] MEDS ORDERED: LORazepam 2 MG/ML VIAL IM ONE (19:30)
[2021-01-10] MEDS ORDERED: DiphenhydrAMINE HCL 50 MG/ML VIAL IM ONE (19:30)
[2021-01-10] MEDS ORDERED: ChlorproMAZINE HCL 50 MG/2 ML AMP IM ONE (19:30)
[2021-01-11 08:43] VITALS: BP 106/67
[2021-01-11] MEDS: NICOTINE 14 MG/24 HOUR PATCH TD SCH (08:50)
[2021-01-11] MEDS: GABAPENTIN 300 MG CAPSULE PO SCH ×3 (08:50→17:00)
[2021-01-11] MEDS: BENZTROPINE MESYLATE 1 MG TABLET PO SCH ×3 (08:50→17:00)
[2021-01-11] MEDS: OLANZapine 10 MG TABLET PO SCH ×2 (08:50→17:00)
[2021-01-12] MEDS: BENZTROPINE MESYLATE 1 MG TABLET PO SCH ×2 (08:36→12:41)
[2021-01-12] MEDS: OLANZapine 10 MG TABLET PO SCH (08:37)
[2021-01-12] MEDS: NICOTINE 14 MG/24 HOUR PATCH TD SCH (08:37)
[2021-01-12] MEDS: GABAPENTIN 300 MG CAPSULE PO SCH ×2 (08:37→12:41)
== END 2021-01-12 15:23 | disposition hospice, inpatient (51) | DRG 750 ==
LOC: EMS 19:53 → B3A 11-25 09:10
PROVIDERS: ADMIT Psychiatry & Neurology Child & Adolescent Psychiatry; ATTEND Psychiatry & Neurology Child & Adolescent Psychiatry
DX: F25.1 Schizoaffective disorder, depressive type (principal); E46 Unspecified protein-calorie malnutrition; Z59.0 Homelessness; Z91.14 Patient's other noncompliance with medication regimen; F10.10 Alcohol abuse, uncomplicated; F31.9 Bipolar disorder, unspecified; Z20.822 Contact with and (suspected) exposure to COVID-19; F41.9 Anxiety disorder, unspecified; G47.00 Insomnia, unspecified; G44.209 Tension-type headache, unspecified, not intractable; Z87.891 Personal history of nicotine dependence; Z68.21 Body mass index [BMI] 21.0-21.9, adult; Z79.899 Other long term (current) drug therapy; Z91.19 Patient's noncompliance with other medical treatment and regimen
CPT/HCPCS: 70486; 81003; 87081; 99285; J1200; J1630; J2060; J3230

== ENCOUNTER 2021-01-11 16:16 | Emergency (ER) | payer MEDICAID, OTHER ==
[~2021-01-11] VITALS: Ht 170.2 cm; Wt 61.4 kg
[2021-01-11 21:28] LABS: COVID AG,FIA SOURCE NASOPHARYNGEAL
[2021-01-11] MEDS ORDERED: DiphenhydrAMINE HCL 25 MG CAPSULE PO ONE (21:30)
[2021-01-11] MEDS ORDERED: LORazepam 2 MG TABLET PO ONE (21:30)
[2021-01-11 21:56] LABS: BASOPHILS % (AUTO) 0.7 % (0.0-2.0); EOSINOPHILS % (AUTO) 1.3 % (1.0-6.0); HEMOGLOBIN 13.6 g/dL (13.5-17.5); LYMPHOCYTES # (AUTO) 2.4 K/uL (1.0-4.8); LYMPHOCYTES % (AUTO) 23.2 % (22.0-44.0); MEAN CORPUSCULAR HEMOGLOBIN 29.7 pg (26.0-34.0); MEAN CORPUSCULAR HGB CONC 32.3 G/dL (31.0-37.0); MEAN CORPUSCULAR VOLUME 92 fL (80-100); MONOCYTES # (AUTO) 1.1 K/uL (0.1-1.0); NEUTROPHILS # (AUTO) 6.6 K/uL (1.8-7.7); NEUTROPHILS % (AUTO) 63.8 % (40.0-70.0); PLATELET COUNT (AUTO) 329 K/uL (150-450); RED BLOOD CELL COUNT(AUTO) 4.57 MIL/uL (4.50-5.90); RED CELL DISTRIBUTION WIDTH 13.8 % (11.5-14.5)
[2021-01-11 22:05] LABS: ANION GAP 7 mmol/L (8-16); CALCIUM, TOTAL 8.1 mg/dL (8.8-10.5); CARBON DIOXIDE 29 mmol/L (22-29); CHLORIDE 108 mmol/L (98-107); GLOMERULAR FILTR. RATE CALC > 60 mL/min (>60); GLUCOSE,RANDOM 105 mg/dL (70-110); POTASSIUM 3.6 mmol/L (3.5-5.1); SODIUM SERUM 144 mmol/L (136-145); UREA NITROGEN, BLOOD 10 mg/dL (7-18)
[2021-01-11 22:08] LABS: INR 1.1 (0.9-1.1); PROTHROMBIN TIME 11.4 SEC (9.4-11.6)
[2021-01-11 22:10] LABS: ALANINE AMINOTRANSFERASE 42 U/L (12-78); ALBUMIN 3.4 g/dL (3.4-5.0); ALKALINE PHOSPHATASE 120 U/L (46-116); ASPARTATE AMINOTRANSFERASE 35 U/L (15-37); BILIRUBIN,TOTAL 0.9 mg/dL (0.1-1.0); TOTAL PROTEIN, SERUM 6.9 g/dL (6.4-8.2)
[2021-01-12 07:37] VITALS: BP 124/76
[2021-01-12] MEDS ORDERED: HALOPERIDOL LACTATE 5 MG/ML VIAL IM ONE (07:45)
[2021-01-12] MEDS ORDERED: LORazepam 2 MG/ML VIAL IM ONE (07:45)
[2021-01-12] MEDS ORDERED: DiphenhydrAMINE HCL 50 MG/ML VIAL IM ONE (07:45)
== END 2021-01-12 10:23 | disposition short-term general hospital (02) ==
LOC: EMS 16:18
DX: S02.642A Fracture of ramus of left mandible, initial encounter for closed fracture (principal); H11.32 Conjunctival hemorrhage, left eye; F25.9 Schizoaffective disorder, unspecified; F32.9 Major depressive disorder, single episode, unspecified; F41.9 Anxiety disorder, unspecified; F17.210 Nicotine dependence, cigarettes, uncomplicated; Z20.822 Contact with and (suspected) exposure to COVID-19; W50.0XXA Accidental hit or strike by another person, initial encounter; Y93.89 Activity, other specified; Y92.89 Other specified places as the place of occurrence of the external cause; Y99.8 Other external cause status
CPT/HCPCS: 36415; 80053; 85025; 85610; 85730; 87426; 96372; 99285; J1200; J1630; J2060

== ENCOUNTER 2021-01-19 16:37 | Inpatient (IN) | payer OTHER ==
[~2021-01-19] VITALS: Ht 170.2 cm; Wt 65.3 kg
[2021-01-19 20:58] VITALS: BP 115/72
[2021-01-19] MEDS ORDERED: OxyCODONE HCL/ACETAMINOPHEN 5-325 MG TABLET PO PRN (21:45)
[2021-01-19] MEDS ORDERED: ACETAMINOPHEN 325 MG TABLET PO PRN (21:45)
[2021-01-19] MEDS ORDERED: MORPHINE SULFATE 2 MG/ML SYRINGE IVP PRN (21:45)
[2021-01-19] MEDS ORDERED: HALOPERIDOL 10 MG TABLET PO PRN (21:45)
[2021-01-19] MEDS ORDERED: ONDANSETRON HCL 4 MG/2 ML VIAL IVP PRN (21:45)
[2021-01-19] MEDS ORDERED: OLANZapine 10 MG TABLET PO SCH (22:00)
[2021-01-20] MEDS: HEPARIN SODIUM,PORCINE 5,000 UNITS/ML VIAL SQ SCH ×4 (00:11→15:15)
[2021-01-20] MEDS: NEOMYCIN/POLYMYXIN B/GRAMICIDIN 10 ML OPHTHALMIC SOLUTION OS SCH ×6 (00:11→20:05)
[2021-01-20 05:32] VITALS: BP 119/75
[2021-01-20] MEDS ORDERED: PANTOPRAZOLE SODIUM 40 MG DR TABLET PO SCH (06:30)
[2021-01-20 07:05] LABS: BASOPHILS % (AUTO) 0.7 % (0.0-2.0); EOSINOPHILS % (AUTO) 3.3 % (1.0-6.0); HEMATOCRIT 42.1 % (41-53); HEMOGLOBIN 13.9 g/dL (13.5-17.5); LYMPHOCYTES # (AUTO) 2.1 K/uL (1.0-4.8); LYMPHOCYTES % (AUTO) 26.6 % (22.0-44.0); MEAN CORPUSCULAR HEMOGLOBIN 30.2 pg (26.0-34.0); MEAN CORPUSCULAR VOLUME 92 fL (80-100); MONOCYTES # (AUTO) 0.9 K/uL (0.1-1.0); MONOCYTES % (AUTO) 11.5 % (2.0-9.0); NEUTROPHILS # (AUTO) 4.5 K/uL (1.8-7.7); NEUTROPHILS % (AUTO) 57.9 % (40.0-70.0); PLATELET COUNT (AUTO) 411 K/uL (150-450); RED CELL DISTRIBUTION WIDTH 13.2 % (11.5-14.5)
[2021-01-20 07:15] LABS: ANION GAP 8 mmol/L (8-16); CALCIUM, TOTAL 9.2 mg/dL (8.8-10.5); CARBON DIOXIDE 28 mmol/L (22-29); CHLORIDE 106 mmol/L (98-107); CREATININE 0.81 mg/dL (0.60-1.30); GLOMERULAR FILTR. RATE CALC > 60 mL/min (>60); GLUCOSE,RANDOM 101 mg/dL (70-110); SODIUM SERUM 142 mmol/L (136-145); UREA NITROGEN, BLOOD 15 mg/dL (7-18)
[2021-01-20 07:17] VITALS: BP 133/75
[2021-01-20] MEDS ORDERED: HALOPERIDOL LACTATE 5 MG/ML VIAL IM ONE (09:15)
[2021-01-20] MEDS: BENZTROPINE MESYLATE 1 MG TABLET PO SCH ×3 (09:32→20:05)
[2021-01-20] MEDS: FAMOTIDINE 20 MG TABLET PO SCH (09:32)
[2021-01-20] MEDS: GABAPENTIN 300 MG CAPSULE PO SCH ×3 (09:32→20:05)
[2021-01-20] MEDS: DOCUSATE SODIUM 100 MG CAPSULE PO SCH ×2 (09:33→20:05)
[2021-01-20] MEDS: OLANZapine 10 MG TABLET PO SCH ×2 (11:07→20:05)
[2021-01-20 14:49] VITALS: BP 108/71
[2021-01-20 19:22] VITALS: BP 118/75
[2021-01-20] MEDS ORDERED: OLANZapine 10 MG TABLET PO SCH (21:00)
[2021-01-21] MEDS: HEPARIN SODIUM,PORCINE 5,000 UNITS/ML VIAL SQ SCH ×4 (01:45→23:38)
[2021-01-21] MEDS: NEOMYCIN/POLYMYXIN B/GRAMICIDIN 10 ML OPHTHALMIC SOLUTION OS SCH ×8 (01:45→23:38)
[2021-01-21 05:00] VITALS: BP 99/58
[2021-01-21] MEDS: DOCUSATE SODIUM 100 MG CAPSULE PO SCH ×2 (07:53→20:26)
[2021-01-21] MEDS: OLANZapine 10 MG TABLET PO SCH ×2 (07:54→20:25)
[2021-01-21] MEDS: GABAPENTIN 300 MG CAPSULE PO SCH ×3 (07:54→20:28)
[2021-01-21] MEDS: FAMOTIDINE 20 MG TABLET PO SCH (07:54)
[2021-01-21] MEDS: BENZTROPINE MESYLATE 1 MG TABLET PO SCH ×3 (07:55→20:26)
[2021-01-21 08:04] VITALS: BP 126/74
[2021-01-21 16:05] VITALS: BP 132/66
[2021-01-21 19:30] VITALS: BP 122/72
[2021-01-21 22:34] VITALS: BP 131/76
[2021-01-22 04:22] VITALS: BP 104/63
[2021-01-22] MEDS: NEOMYCIN/POLYMYXIN B/GRAMICIDIN 10 ML OPHTHALMIC SOLUTION OS SCH ×5 (04:45→21:07)
[2021-01-22 08:06] VITALS: BP 137/85
[2021-01-22] MEDS: GABAPENTIN 300 MG CAPSULE PO SCH ×3 (08:15→21:07)
[2021-01-22] MEDS: BENZTROPINE MESYLATE 1 MG TABLET PO SCH ×3 (08:16→21:07)
[2021-01-22] MEDS: CALCIUM CARBONATE 500 MG TABLET PO PRN (08:16)
[2021-01-22] MEDS: DOCUSATE SODIUM 100 MG CAPSULE PO SCH ×2 (08:16→21:07)
[2021-01-22] MEDS: FAMOTIDINE 20 MG TABLET PO SCH (08:16)
[2021-01-22] MEDS: OLANZapine 10 MG TABLET PO SCH ×2 (08:16→21:07)
[2021-01-22] MEDS: HEPARIN SODIUM,PORCINE 5,000 UNITS/ML VIAL SQ SCH ×2 (08:17→16:14)
[2021-01-22 15:29] VITALS: BP 111/68
[2021-01-22 19:33] VITALS: BP 113/75
[2021-01-23] MEDS: NEOMYCIN/POLYMYXIN B/GRAMICIDIN 10 ML OPHTHALMIC SOLUTION OS SCH ×7 (04:17→23:36)
[2021-01-23 04:24] VITALS: BP 101/73
[2021-01-23 08:00] VITALS: BP 114/67
[2021-01-23] MEDS: DOCUSATE SODIUM 100 MG CAPSULE PO SCH ×2 (09:18→20:11)
[2021-01-23] MEDS: FAMOTIDINE 20 MG TABLET PO SCH (09:18)
[2021-01-23] MEDS: OLANZapine 10 MG TABLET PO SCH ×2 (09:18→21:03)
[2021-01-23] MEDS: HEPARIN SODIUM,PORCINE 5,000 UNITS/ML VIAL SQ SCH ×4 (09:18→23:36)
[2021-01-23] MEDS: CALCIUM CARBONATE 500 MG TABLET PO PRN (09:19)
[2021-01-23] MEDS: GABAPENTIN 300 MG CAPSULE PO SCH ×3 (09:19→20:11)
[2021-01-23] MEDS: BENZTROPINE MESYLATE 1 MG TABLET PO SCH ×3 (09:19→20:11)
[2021-01-23 17:00] VITALS: BP 142/72
[2021-01-23 19:55] VITALS: BP 138/68
[2021-01-23] MEDS: ZOLPIDEM TARTRATE 5 MG TABLET PO PRN (23:36)
[2021-01-24] MEDS: NEOMYCIN/POLYMYXIN B/GRAMICIDIN 10 ML OPHTHALMIC SOLUTION OS SCH ×6 (03:28→23:16)
[2021-01-24 04:15] VITALS: BP 104/73
[2021-01-24 07:58] VITALS: BP 109/77
[2021-01-24] MEDS: OLANZapine 10 MG TABLET PO SCH ×2 (08:23→19:50)
[2021-01-24] MEDS: HEPARIN SODIUM,PORCINE 5,000 UNITS/ML VIAL SQ SCH ×3 (08:24→23:16)
[2021-01-24] MEDS: DOCUSATE SODIUM 100 MG CAPSULE PO SCH ×2 (08:25→19:50)
[2021-01-24] MEDS: BENZTROPINE MESYLATE 1 MG TABLET PO SCH ×3 (08:25→19:50)
[2021-01-24] MEDS: FAMOTIDINE 20 MG TABLET PO SCH (08:25)
[2021-01-24] MEDS: GABAPENTIN 300 MG CAPSULE PO SCH ×3 (08:25→19:50)
[2021-01-24 17:05] VITALS: BP 118/72
[2021-01-24 19:35] VITALS: BP 115/78
[2021-01-25] MEDS: NEOMYCIN/POLYMYXIN B/GRAMICIDIN 10 ML OPHTHALMIC SOLUTION OS SCH ×6 (03:56→23:53)
[2021-01-25 04:30] VITALS: BP 100/61
[2021-01-25] MEDS: OLANZapine 10 MG TABLET PO SCH ×2 (08:07→21:13)
[2021-01-25] MEDS: DOCUSATE SODIUM 100 MG CAPSULE PO SCH ×2 (08:07→21:13)
[2021-01-25] MEDS: BENZTROPINE MESYLATE 1 MG TABLET PO SCH ×3 (08:07→21:13)
[2021-01-25] MEDS: GABAPENTIN 300 MG CAPSULE PO SCH ×3 (08:07→21:13)
[2021-01-25 08:08] VITALS: BP 123/80
[2021-01-25] MEDS: FAMOTIDINE 20 MG TABLET PO SCH (08:08)
[2021-01-25] MEDS: HEPARIN SODIUM,PORCINE 5,000 UNITS/ML VIAL SQ SCH ×3 (08:08→23:53)
[2021-01-25 15:40] VITALS: BP 114/79
[2021-01-25 19:35] VITALS: BP 117/74
[2021-01-26] MEDS: NEOMYCIN/POLYMYXIN B/GRAMICIDIN 10 ML OPHTHALMIC SOLUTION OS SCH ×5 (04:00→20:16)
[2021-01-26 04:16] VITALS: BP 111/71
[2021-01-26] MEDS: BENZTROPINE MESYLATE 1 MG TABLET PO SCH ×3 (08:45→20:15)
[2021-01-26] MEDS: OLANZapine 10 MG TABLET PO SCH ×2 (08:45→20:15)
[2021-01-26] MEDS: DOCUSATE SODIUM 100 MG CAPSULE PO SCH ×3 (08:45→20:15)
[2021-01-26] MEDS: GABAPENTIN 300 MG CAPSULE PO SCH ×3 (08:45→20:15)
[2021-01-26] MEDS: FAMOTIDINE 20 MG TABLET PO SCH (08:45)
[2021-01-26] MEDS: HEPARIN SODIUM,PORCINE 5,000 UNITS/ML VIAL SQ SCH ×2 (08:46→15:48)
[2021-01-26 08:49] VITALS: BP 105/73
[2021-01-26 19:12] VITALS: BP 116/74
[2021-01-26 23:27] VITALS: BP 110/61
[2021-01-27] MEDS: NEOMYCIN/POLYMYXIN B/GRAMICIDIN 10 ML OPHTHALMIC SOLUTION OS SCH ×7 (00:17→21:00)
[2021-01-27] MEDS: HEPARIN SODIUM,PORCINE 5,000 UNITS/ML VIAL SQ SCH ×3 (00:17→15:57)
[2021-01-27 04:30] VITALS: BP 114/63
[2021-01-27 08:55] VITALS: BP 153/71
[2021-01-27] MEDS: FAMOTIDINE 20 MG TABLET PO SCH (09:13)
[2021-01-27] MEDS: DOCUSATE SODIUM 100 MG CAPSULE PO SCH ×2 (09:13→21:00)
[2021-01-27] MEDS: GABAPENTIN 300 MG CAPSULE PO SCH ×3 (09:13→21:00)
[2021-01-27] MEDS: OLANZapine 10 MG TABLET PO SCH ×2 (09:13→21:00)
[2021-01-27] MEDS: BENZTROPINE MESYLATE 1 MG TABLET PO SCH ×3 (09:14→21:01)
[2021-01-27 16:01] VITALS: BP 103/72
[2021-01-27 19:21] VITALS: BP 125/69
[2021-01-28] MEDS: NEOMYCIN/POLYMYXIN B/GRAMICIDIN 10 ML OPHTHALMIC SOLUTION OS SCH ×7 (00:14→23:41)
[2021-01-28] MEDS: HEPARIN SODIUM,PORCINE 5,000 UNITS/ML VIAL SQ SCH ×4 (00:15→23:41)
[2021-01-28 05:09] VITALS: BP 93/55
[2021-01-28] MEDS: BENZTROPINE MESYLATE 1 MG TABLET PO SCH ×3 (08:47→20:12)
[2021-01-28] MEDS: GABAPENTIN 300 MG CAPSULE PO SCH ×3 (08:47→20:12)
[2021-01-28] MEDS: FAMOTIDINE 20 MG TABLET PO SCH (08:47)
[2021-01-28] MEDS: DOCUSATE SODIUM 100 MG CAPSULE PO SCH ×2 (08:47→20:12)
[2021-01-28] MEDS: OLANZapine 10 MG TABLET PO SCH ×2 (08:47→20:12)
[2021-01-28 08:49] VITALS: BP 111/78
[2021-01-28 15:45] VITALS: BP 102/61
[2021-01-28 19:35] VITALS: BP 111/72
[2021-01-28] MEDS ORDERED: INFLUENZA VIRUS VACCINE QVS 2021-22 (6MO+)/PF 60 MCG/0.5 ML SYRINGE IM. ONE (23:45)
[2021-01-29] VITALS: BP 99/55
[2021-01-29] MEDS: NEOMYCIN/POLYMYXIN B/GRAMICIDIN 10 ML OPHTHALMIC SOLUTION OS SCH ×5 (03:27→19:51)
[2021-01-29 05:45] VITALS: BP 102/55
[2021-01-29 08:00] VITALS: BP 111/59
[2021-01-29] MEDS: FAMOTIDINE 20 MG TABLET PO SCH (08:12)
[2021-01-29] MEDS: DOCUSATE SODIUM 100 MG CAPSULE PO SCH ×2 (08:12→19:50)
[2021-01-29] MEDS: OLANZapine 10 MG TABLET PO SCH ×2 (08:12→19:50)
[2021-01-29] MEDS: HEPARIN SODIUM,PORCINE 5,000 UNITS/ML VIAL SQ SCH ×2 (08:12→16:24)
[2021-01-29] MEDS: BENZTROPINE MESYLATE 1 MG TABLET PO SCH ×3 (08:12→19:50)
[2021-01-29] MEDS: GABAPENTIN 300 MG CAPSULE PO SCH ×3 (08:13→19:50)
[2021-01-29 16:17] VITALS: BP 109/61
[2021-01-29 19:22] VITALS: BP 118/74
[2021-01-30] MEDS: HEPARIN SODIUM,PORCINE 5,000 UNITS/ML VIAL SQ SCH
[2021-01-30] MEDS: NEOMYCIN/POLYMYXIN B/GRAMICIDIN 10 ML OPHTHALMIC SOLUTION OS SCH ×7 (00:02→23:47)
[2021-01-30 03:26] VITALS: BP 103/73
[2021-01-30 04:02] LABS: COVID AG,FIA SOURCE NASAL SWAB
[2021-01-30 07:35] VITALS: BP 112/76
[2021-01-30] MEDS: OLANZapine 10 MG TABLET PO SCH ×2 (08:03→20:30)
[2021-01-30] MEDS: DOCUSATE SODIUM 100 MG CAPSULE PO SCH ×2 (08:04→20:30)
[2021-01-30] MEDS: BENZTROPINE MESYLATE 1 MG TABLET PO SCH ×3 (08:04→20:30)
[2021-01-30] MEDS: GABAPENTIN 300 MG CAPSULE PO SCH ×3 (08:04→20:30)
[2021-01-30] MEDS: FAMOTIDINE 20 MG TABLET PO SCH (08:04)
[2021-01-30 15:11] VITALS: BP 114/58
[2021-01-30 20:45] VITALS: BP 115/76
[2021-01-31] MEDS: NEOMYCIN/POLYMYXIN B/GRAMICIDIN 10 ML OPHTHALMIC SOLUTION OS SCH ×6 (03:55→23:54)
[2021-01-31 04:00] VITALS: BP 119/65
[2021-01-31] MEDS: OLANZapine 10 MG TABLET PO SCH ×2 (08:10→20:32)
[2021-01-31] MEDS: DOCUSATE SODIUM 100 MG CAPSULE PO SCH ×2 (08:10→20:33)
[2021-01-31] MEDS: GABAPENTIN 300 MG CAPSULE PO SCH ×3 (08:11→20:33)
[2021-01-31] MEDS: BENZTROPINE MESYLATE 1 MG TABLET PO SCH ×3 (08:11→20:32)
[2021-01-31] MEDS: FAMOTIDINE 20 MG TABLET PO SCH (08:11)
[2021-01-31 08:14] VITALS: BP 95/57
[2021-01-31 16:00] VITALS: BP 116/60
[2021-01-31 19:06] VITALS: BP 119/78
[2021-02-01] MEDS: NEOMYCIN/POLYMYXIN B/GRAMICIDIN 10 ML OPHTHALMIC SOLUTION OS SCH ×5 (04:07→19:55)
[2021-02-01 04:10] VITALS: BP 120/72
[2021-02-01 07:22] VITALS: BP 117/75
[2021-02-01] MEDS: FAMOTIDINE 20 MG TABLET PO SCH (09:25)
[2021-02-01] MEDS: BENZTROPINE MESYLATE 1 MG TABLET PO SCH ×3 (09:25→19:55)
[2021-02-01] MEDS: GABAPENTIN 300 MG CAPSULE PO SCH ×3 (09:25→19:55)
[2021-02-01] MEDS: OLANZapine 10 MG TABLET PO SCH ×2 (09:25→19:55)
[2021-02-01] MEDS: DOCUSATE SODIUM 100 MG CAPSULE PO SCH ×2 (09:29→19:55)
[2021-02-01 16:07] VITALS: BP 115/74
[2021-02-01] MEDS: ZOLPIDEM TARTRATE 5 MG TABLET PO PRN (19:56)
[2021-02-01 20:03] VITALS: BP 117/75
[2021-02-02] MEDS: NEOMYCIN/POLYMYXIN B/GRAMICIDIN 10 ML OPHTHALMIC SOLUTION OS SCH ×6 (00:25→21:13)
[2021-02-02] MEDS: FAMOTIDINE 20 MG TABLET PO SCH (08:18)
[2021-02-02] MEDS: BENZTROPINE MESYLATE 1 MG TABLET PO SCH ×3 (08:18→21:10)
[2021-02-02] MEDS: GABAPENTIN 300 MG CAPSULE PO SCH ×3 (08:18→21:10)
[2021-02-02] MEDS: DOCUSATE SODIUM 100 MG CAPSULE PO SCH ×2 (08:18→21:10)
[2021-02-02] MEDS: OLANZapine 10 MG TABLET PO SCH ×2 (08:18→21:10)
[2021-02-02 08:32] VITALS: BP 117/78
[2021-02-02 15:53] VITALS: BP 118/69
[2021-02-02 19:25] VITALS: BP 103/67
[2021-02-03] MEDS: NEOMYCIN/POLYMYXIN B/GRAMICIDIN 10 ML OPHTHALMIC SOLUTION OS SCH ×6 (01:18→21:35)
[2021-02-03 05:03] VITALS: BP 96/56
[2021-02-03 07:40] VITALS: BP 112/62
[2021-02-03] MEDS: FAMOTIDINE 20 MG TABLET PO SCH (10:46)
[2021-02-03] MEDS: OLANZapine 10 MG TABLET PO SCH ×2 (10:47→21:32)
[2021-02-03] MEDS: GABAPENTIN 300 MG CAPSULE PO SCH ×3 (10:47→21:31)
[2021-02-03] MEDS: DOCUSATE SODIUM 100 MG CAPSULE PO SCH ×2 (10:47→21:32)
[2021-02-03] MEDS: BENZTROPINE MESYLATE 1 MG TABLET PO SCH ×3 (10:47→21:32)
[2021-02-03 15:20] VITALS: BP 116/64
[2021-02-03 20:34] VITALS: BP 118/76
[2021-02-04] MEDS: NEOMYCIN/POLYMYXIN B/GRAMICIDIN 10 ML OPHTHALMIC SOLUTION OS SCH ×6 (02:14→20:04)
[2021-02-04 04:56] VITALS: BP 111/68
[2021-02-04 08:00] VITALS: BP 109/66
[2021-02-04] MEDS: DOCUSATE SODIUM 100 MG CAPSULE PO SCH ×2 (08:02→20:04)
[2021-02-04] MEDS: GABAPENTIN 300 MG CAPSULE PO SCH ×3 (08:02→20:05)
[2021-02-04] MEDS: BENZTROPINE MESYLATE 1 MG TABLET PO SCH ×3 (08:03→20:04)
[2021-02-04] MEDS: OLANZapine 10 MG TABLET PO SCH ×2 (08:03→20:04)
[2021-02-04] MEDS: FAMOTIDINE 20 MG TABLET PO SCH (08:03)
[2021-02-04 17:39] VITALS: BP 121/69
[2021-02-04 20:24] VITALS: BP 108/76
[2021-02-05] MEDS: NEOMYCIN/POLYMYXIN B/GRAMICIDIN 10 ML OPHTHALMIC SOLUTION OS SCH ×7 (00:39→20:38)
[2021-02-05 05:37] VITALS: BP 121/64
[2021-02-05] MEDS: OLANZapine 10 MG TABLET PO SCH ×2 (07:59→20:38)
[2021-02-05] MEDS: FAMOTIDINE 20 MG TABLET PO SCH (07:59)
[2021-02-05] MEDS: DOCUSATE SODIUM 100 MG CAPSULE PO SCH ×2 (07:59→20:37)
[2021-02-05] MEDS: BENZTROPINE MESYLATE 1 MG TABLET PO SCH ×3 (07:59→20:37)
[2021-02-05 08:11] VITALS: BP 129/74
[2021-02-05] MEDS: GABAPENTIN 300 MG CAPSULE PO SCH ×3 (08:37→20:37)
[2021-02-05 16:52] VITALS: BP 107/64
[2021-02-05 19:37] VITALS: BP 120/68
[2021-02-06] MEDS: NEOMYCIN/POLYMYXIN B/GRAMICIDIN 10 ML OPHTHALMIC SOLUTION OS SCH ×6 (04:00→20:00)
[2021-02-06 05:13] VITALS: BP 101/64
[2021-02-06 07:48] VITALS: BP 101/60
[2021-02-06] MEDS: GABAPENTIN 300 MG CAPSULE PO SCH ×3 (08:14→20:25)
[2021-02-06] MEDS: BENZTROPINE MESYLATE 1 MG TABLET PO SCH ×3 (08:14→20:25)
[2021-02-06] MEDS: CALCIUM CARBONATE 500 MG TABLET PO PRN (08:14)
[2021-02-06] MEDS: FAMOTIDINE 20 MG TABLET PO SCH (08:14)
[2021-02-06] MEDS: DOCUSATE SODIUM 100 MG CAPSULE PO SCH ×2 (08:14→20:25)
[2021-02-06] MEDS: OLANZapine 10 MG TABLET PO SCH ×2 (08:19→20:25)
[2021-02-06 15:30] VITALS: BP 106/62
[2021-02-06 19:13] VITALS: BP 120/75
[2021-02-07] MEDS: NEOMYCIN/POLYMYXIN B/GRAMICIDIN 10 ML OPHTHALMIC SOLUTION OS SCH ×5 (04:00→16:00)
[2021-02-07 05:43] VITALS: BP 107/61
[2021-02-07 08:37] VITALS: BP 104/59
[2021-02-07] MEDS: DOCUSATE SODIUM 100 MG CAPSULE PO SCH ×2 (08:52→20:05)
[2021-02-07] MEDS: GABAPENTIN 300 MG CAPSULE PO SCH ×3 (08:53→20:05)
[2021-02-07] MEDS: BENZTROPINE MESYLATE 1 MG TABLET PO SCH ×3 (08:53→20:05)
[2021-02-07] MEDS: FAMOTIDINE 20 MG TABLET PO SCH (08:53)
[2021-02-07] MEDS: OLANZapine 10 MG TABLET PO SCH ×2 (08:53→20:05)
[2021-02-07 14:48] VITALS: BP 123/72
[2021-02-07 19:21] VITALS: BP 117/83
[2021-02-07] MEDS: HYPROMELLOSE 0.5% 15 ML OPHTHALMIC SOLUTION OS SCH (20:00)
[2021-02-08] MEDS: HYPROMELLOSE 0.5% 15 ML OPHTHALMIC SOLUTION OS SCH ×6 (04:00→20:00)
[2021-02-08 05:42] VITALS: BP 95/53
[2021-02-08] MEDS: OLANZapine 10 MG TABLET PO SCH ×2 (08:39→20:43)
[2021-02-08] MEDS: GABAPENTIN 300 MG CAPSULE PO SCH ×3 (08:39→20:43)
[2021-02-08] MEDS: DOCUSATE SODIUM 100 MG CAPSULE PO SCH ×2 (08:40→20:43)
[2021-02-08] MEDS: BENZTROPINE MESYLATE 1 MG TABLET PO SCH ×3 (08:40→20:44)
[2021-02-08] MEDS: FAMOTIDINE 20 MG TABLET PO SCH (08:40)
[2021-02-08 09:51] VITALS: BP 128/66
[2021-02-08 12:27] VITALS: BP 111/72
[2021-02-08 16:00] VITALS: BP 114/68
[2021-02-08 19:40] VITALS: BP 120/75
[2021-02-09] MEDS: HYPROMELLOSE 0.5% 15 ML OPHTHALMIC SOLUTION OS SCH ×4 (04:00→11:06)
[2021-02-09 05:51] VITALS: BP 108/51
[2021-02-09 07:58] VITALS: BP 112/58
[2021-02-09] MEDS: GABAPENTIN 300 MG CAPSULE PO SCH ×3 (09:04→20:37)
[2021-02-09] MEDS: BENZTROPINE MESYLATE 1 MG TABLET PO SCH ×3 (09:04→20:37)
[2021-02-09] MEDS: OLANZapine 10 MG TABLET PO SCH ×2 (09:04→20:37)
[2021-02-09] MEDS: FAMOTIDINE 20 MG TABLET PO SCH (09:04)
[2021-02-09] MEDS: DOCUSATE SODIUM 100 MG CAPSULE PO SCH ×2 (09:04→20:37)
[2021-02-09 15:13] VITALS: BP 104/73
[2021-02-09 19:21] VITALS: BP 146/50
[2021-02-10 04:49] VITALS: BP 100/58
[2021-02-10] MEDS: FAMOTIDINE 20 MG TABLET PO SCH (08:04)
[2021-02-10] MEDS: BENZTROPINE MESYLATE 1 MG TABLET PO SCH ×2 (08:04→15:09)
[2021-02-10] MEDS: DOCUSATE SODIUM 100 MG CAPSULE PO SCH (08:04)
[2021-02-10] MEDS: OLANZapine 10 MG TABLET PO SCH (08:04)
[2021-02-10] MEDS: GABAPENTIN 300 MG CAPSULE PO SCH ×2 (08:05→15:09)
[2021-02-10 08:15] VITALS: BP 102/63
[2021-02-10 15:41] VITALS: BP 112/54
== END 2021-02-10 16:40 | disposition home or self-care (01) | DRG 115 ==
LOC: 6N 20:40 → 6S 02-05 11:31 → 6N 02-08 19:11
PROVIDERS: ADMIT Internal Medicine; ATTEND Internal Medicine
DX: S02.609A Fracture of mandible, unspecified, initial encounter for closed fracture (principal); H49.02 Third [oculomotor] nerve palsy, left eye; F20.9 Schizophrenia, unspecified; F31.9 Bipolar disorder, unspecified; Z20.822 Contact with and (suspected) exposure to COVID-19; F41.9 Anxiety disorder, unspecified; Z91.19 Patient's noncompliance with other medical treatment and regimen; Y08.89XA Assault by other specified means, initial encounter; Y93.89 Activity, other specified; Y92.89 Other specified places as the place of occurrence of the external cause; Y99.8 Other external cause status
CPT/HCPCS: 80048; 85025; 87081; 90686; J1644

== ENCOUNTER 2021-02-10 16:50 | Inpatient (IN) | payer MEDICAID ==
[~2021-02-10] VITALS: Ht 170.2 cm; Wt 66.7 kg
[2021-02-10 19:23] VITALS: BP 107/73
[2021-02-10] MEDS: BENZTROPINE MESYLATE 1 MG TABLET PO SCH (20:45)
[2021-02-10] MEDS: LITHIUM CARBONATE 600 MG CAPSULE PO SCH (20:45)
[2021-02-10] MEDS: OLANZapine 10 MG TABLET PO SCH (20:46)
[2021-02-11 05:44] VITALS: BP 123/82
[2021-02-11] MEDS: OLANZapine 10 MG TABLET PO SCH ×2 (09:23→19:54)
[2021-02-11] MEDS: BENZTROPINE MESYLATE 1 MG TABLET PO SCH ×3 (09:23→19:54)
[2021-02-11] MEDS: LITHIUM CARBONATE 600 MG CAPSULE PO SCH ×2 (09:23→19:54)
[2021-02-11 10:09] VITALS: BP 107/69
[2021-02-11 12:16] VITALS: BP 121/78
[2021-02-11 14:22] LABS: COVID AG,FIA SOURCE NASAL SWAB
[2021-02-11 15:58] VITALS: BP 110/63
[2021-02-11 19:47] VITALS: BP 109/76
[2021-02-12 05:15] VITALS: BP 107/71
[2021-02-12] MEDS: BENZTROPINE MESYLATE 1 MG TABLET PO SCH ×3 (08:30→20:58)
[2021-02-12] MEDS: OLANZapine 10 MG TABLET PO SCH ×2 (08:30→20:57)
[2021-02-12] MEDS: LITHIUM CARBONATE 600 MG CAPSULE PO SCH ×2 (08:30→20:57)
[2021-02-12 08:33] VITALS: BP 102/68
[2021-02-12 15:41] VITALS: BP 119/69
[2021-02-12 19:37] VITALS: BP 117/74
[2021-02-13 05:10] VITALS: BP 105/68
[2021-02-13] MEDS: LITHIUM CARBONATE 600 MG CAPSULE PO SCH ×2 (08:52→21:11)
[2021-02-13] MEDS: BENZTROPINE MESYLATE 1 MG TABLET PO SCH ×3 (08:52→21:12)
[2021-02-13] MEDS: OLANZapine 10 MG TABLET PO SCH ×2 (08:52→21:12)
[2021-02-13 10:54] VITALS: BP 116/63
[2021-02-13] MEDS ORDERED: ZOLPIDEM TARTRATE 10 MG TABLET PO PRN (14:30)
[2021-02-13 15:34] VITALS: BP 114/73
[2021-02-13 19:30] VITALS: BP 118/78
[2021-02-14 04:00] VITALS: BP 122/68
[2021-02-14 08:06] VITALS: BP 104/63
[2021-02-14] MEDS: BENZTROPINE MESYLATE 1 MG TABLET PO SCH ×3 (09:01→21:04)
[2021-02-14] MEDS: LITHIUM CARBONATE 600 MG CAPSULE PO SCH ×2 (09:01→21:04)
[2021-02-14] MEDS: OLANZapine 10 MG TABLET PO SCH ×2 (09:02→21:04)
[2021-02-14 16:30] VITALS: BP 116/76
[2021-02-14 20:00] VITALS: BP 111/76
[2021-02-15 04:00] VITALS: BP 106/62
[2021-02-15 07:53] VITALS: BP 99/64
[2021-02-15] MEDS: LITHIUM CARBONATE 600 MG CAPSULE PO SCH ×2 (08:08→20:53)
[2021-02-15] MEDS: BENZTROPINE MESYLATE 1 MG TABLET PO SCH ×3 (08:08→20:53)
[2021-02-15] MEDS: OLANZapine 10 MG TABLET PO SCH ×2 (08:08→20:53)
[2021-02-15 15:41] VITALS: BP 114/80
[2021-02-15 19:56] VITALS: BP 118/80
[2021-02-16 05:38] VITALS: BP 124/62
[2021-02-16] MEDS: BENZTROPINE MESYLATE 1 MG TABLET PO SCH ×3 (08:02→20:07)
[2021-02-16] MEDS: LITHIUM CARBONATE 600 MG CAPSULE PO SCH ×2 (08:03→20:06)
[2021-02-16] MEDS: OLANZapine 10 MG TABLET PO SCH ×2 (08:03→20:06)
[2021-02-16 08:19] VITALS: BP 119/65
[2021-02-16 12:00] VITALS: BP 119/76
[2021-02-16 16:59] VITALS: BP 112/80
[2021-02-16 19:23] VITALS: BP 115/74
[2021-02-17 05:00] VITALS: BP 117/72
[2021-02-17] MEDS: LITHIUM CARBONATE 600 MG CAPSULE PO SCH ×2 (08:37→20:00)
[2021-02-17] MEDS: OLANZapine 10 MG TABLET PO SCH ×2 (08:37→20:00)
[2021-02-17] MEDS: BENZTROPINE MESYLATE 1 MG TABLET PO SCH ×3 (08:37→20:00)
[2021-02-17 12:00] VITALS: BP 120/75
[2021-02-17 18:34] VITALS: BP 116/71
[2021-02-18 05:02] VITALS: BP 123/73
[2021-02-18 07:37] VITALS: BP 124/76
[2021-02-18] MEDS: BENZTROPINE MESYLATE 1 MG TABLET PO SCH ×3 (09:08→20:19)
[2021-02-18] MEDS: LITHIUM CARBONATE 600 MG CAPSULE PO SCH ×2 (09:08→20:19)
[2021-02-18] MEDS: OLANZapine 10 MG TABLET PO SCH ×2 (09:08→20:19)
[2021-02-18 15:13] VITALS: BP 118/76
[2021-02-18 20:00] VITALS: BP 107/72
[2021-02-19 05:00] VITALS: BP 104/71
[2021-02-19] MEDS: BENZTROPINE MESYLATE 1 MG TABLET PO SCH ×3 (08:07→20:21)
[2021-02-19] MEDS: LITHIUM CARBONATE 600 MG CAPSULE PO SCH ×2 (08:07→20:21)
[2021-02-19] MEDS: OLANZapine 10 MG TABLET PO SCH ×2 (08:07→20:21)
[2021-02-19 08:13] VITALS: BP 100/65
[2021-02-19 15:10] VITALS: BP 116/72
[2021-02-19 19:30] VITALS: BP 110/75
[2021-02-20 04:20] VITALS: BP 105/75
[2021-02-20 07:46] VITALS: BP 110/72
[2021-02-20] MEDS: LITHIUM CARBONATE 600 MG CAPSULE PO SCH ×2 (08:20→20:02)
[2021-02-20] MEDS: BENZTROPINE MESYLATE 1 MG TABLET PO SCH ×3 (08:20→20:02)
[2021-02-20] MEDS: OLANZapine 10 MG TABLET PO SCH ×2 (08:21→20:02)
[2021-02-20 15:13] VITALS: BP 112/76
[2021-02-20 20:33] VITALS: BP 127/72
[2021-02-21 04:59] VITALS: BP 123/71
[2021-02-21 08:08] VITALS: BP 108/71
[2021-02-21] MEDS: OLANZapine 10 MG TABLET PO SCH ×2 (10:08→20:02)
[2021-02-21] MEDS: LITHIUM CARBONATE 600 MG CAPSULE PO SCH ×2 (10:08→20:02)
[2021-02-21] MEDS: BENZTROPINE MESYLATE 1 MG TABLET PO SCH ×3 (10:08→20:02)
[2021-02-21 16:30] VITALS: BP 125/74
[2021-02-21 19:30] VITALS: BP 116/70
[2021-02-22 04:35] VITALS: BP 124/74
[2021-02-22] MEDS: LITHIUM CARBONATE 600 MG CAPSULE PO SCH ×2 (11:03→20:30)
[2021-02-22] MEDS: OLANZapine 10 MG TABLET PO SCH ×2 (11:03→20:30)
[2021-02-22] MEDS: BENZTROPINE MESYLATE 1 MG TABLET PO SCH ×3 (11:03→20:30)
[2021-02-22 11:16] VITALS: BP 116/70
[2021-02-22 15:18] VITALS: BP 120/75
[2021-02-22 19:51] VITALS: BP 113/70
[2021-02-23 04:48] VITALS: BP 111/71
[2021-02-23 07:49] VITALS: BP 113/69
[2021-02-23] MEDS: LITHIUM CARBONATE 600 MG CAPSULE PO SCH ×2 (09:02→20:18)
[2021-02-23] MEDS: BENZTROPINE MESYLATE 1 MG TABLET PO SCH ×3 (09:02→20:19)
[2021-02-23] MEDS: OLANZapine 10 MG TABLET PO SCH ×2 (09:03→20:19)
[2021-02-23 15:45] VITALS: BP 117/71
[2021-02-23 20:00] VITALS: BP 113/74
[2021-02-24 05:00] VITALS: BP 108/72
[2021-02-24] MEDS: OLANZapine 10 MG TABLET PO SCH ×2 (07:56→19:49)
[2021-02-24] MEDS: LITHIUM CARBONATE 600 MG CAPSULE PO SCH ×2 (07:56→19:49)
[2021-02-24] MEDS: BENZTROPINE MESYLATE 1 MG TABLET PO SCH ×3 (07:56→19:49)
[2021-02-24 09:18] VITALS: BP 112/66
[2021-02-24 15:14] VITALS: BP 118/68
[2021-02-24 19:20] VITALS: BP 120/72
[2021-02-25 04:55] VITALS: BP 106/63
[2021-02-25 07:35] VITALS: BP 110/68
[2021-02-25] MEDS: BENZTROPINE MESYLATE 1 MG TABLET PO SCH ×3 (08:25→20:30)
[2021-02-25] MEDS: OLANZapine 10 MG TABLET PO SCH ×2 (08:25→20:30)
[2021-02-25] MEDS: LITHIUM CARBONATE 600 MG CAPSULE PO SCH ×2 (08:25→20:30)
[2021-02-25 16:41] VITALS: BP 129/78
[2021-02-25 19:30] VITALS: BP 118/72
[2021-02-26 04:00] VITALS: BP 114/70
[2021-02-26 07:49] VITALS: BP 100/63
[2021-02-26] MEDS: BENZTROPINE MESYLATE 1 MG TABLET PO SCH ×3 (08:54→20:33)
[2021-02-26] MEDS: LITHIUM CARBONATE 600 MG CAPSULE PO SCH ×2 (08:54→20:33)
[2021-02-26] MEDS: OLANZapine 10 MG TABLET PO SCH ×2 (08:55→20:33)
[2021-02-26 15:33] VITALS: BP 125/88
[2021-02-26 20:00] VITALS: BP 118/74
[2021-02-27 06:00] VITALS: BP 98/62
[2021-02-27 07:55] VITALS: BP 107/58
[2021-02-27] MEDS: LITHIUM CARBONATE 600 MG CAPSULE PO SCH ×2 (08:41→20:29)
[2021-02-27] MEDS: OLANZapine 10 MG TABLET PO SCH ×2 (08:41→20:29)
[2021-02-27] MEDS: BENZTROPINE MESYLATE 1 MG TABLET PO SCH ×3 (08:41→20:29)
[2021-02-27 16:41] VITALS: BP 104/72
[2021-02-27 20:05] VITALS: BP 119/76
[2021-02-28 05:40] VITALS: BP 100/51
[2021-02-28 07:54] VITALS: BP 107/64
[2021-02-28] MEDS: OLANZapine 10 MG TABLET PO SCH ×2 (09:19→20:43)
[2021-02-28] MEDS: LITHIUM CARBONATE 600 MG CAPSULE PO SCH ×2 (09:19→20:43)
[2021-02-28] MEDS: BENZTROPINE MESYLATE 1 MG TABLET PO SCH ×3 (09:19→20:43)
[2021-02-28 16:00] VITALS: BP 115/70
[2021-02-28 20:23] VITALS: BP 119/85
[2021-03-01 05:00] VITALS: BP 114/69
[2021-03-01 08:44] VITALS: BP 100/69
[2021-03-01] MEDS: LITHIUM CARBONATE 600 MG CAPSULE PO SCH ×2 (09:01→21:11)
[2021-03-01] MEDS: BENZTROPINE MESYLATE 1 MG TABLET PO SCH ×3 (09:01→21:11)
[2021-03-01] MEDS: OLANZapine 10 MG TABLET PO SCH ×2 (09:02→21:12)
[2021-03-01 15:47] VITALS: BP 125/73
[2021-03-01 19:35] VITALS: BP 117/76
[2021-03-02 06:25] VITALS: BP 96/52
[2021-03-02 08:09] VITALS: BP 100/60
[2021-03-02] MEDS: OLANZapine 10 MG TABLET PO SCH ×2 (09:02→20:31)
[2021-03-02] MEDS: BENZTROPINE MESYLATE 1 MG TABLET PO SCH ×3 (09:02→20:31)
[2021-03-02] MEDS: LITHIUM CARBONATE 600 MG CAPSULE PO SCH ×2 (09:02→20:31)
[2021-03-02] MEDS ORDERED: SODIUM CHLORIDE 0.9% 50 ML ONE (11:46)
[2021-03-02 15:10] VITALS: BP 118/83
[2021-03-02 20:28] VITALS: BP 116/83
[2021-03-03 06:10] VITALS: BP 102/66
[2021-03-03] MEDS: BENZTROPINE MESYLATE 1 MG TABLET PO SCH ×3 (08:23→20:14)
[2021-03-03] MEDS: OLANZapine 10 MG TABLET PO SCH ×2 (08:23→20:14)
[2021-03-03] MEDS: LITHIUM CARBONATE 600 MG CAPSULE PO SCH ×2 (08:23→20:14)
[2021-03-03 10:36] VITALS: BP 125/76
[2021-03-03 14:47] VITALS: BP 112/66
[2021-03-03 20:05] VITALS: BP 126/75
[2021-03-04 04:49] VITALS: BP 90/51
[2021-03-04] MEDS: OLANZapine 10 MG TABLET PO SCH ×2 (09:19→20:38)
[2021-03-04] MEDS: LITHIUM CARBONATE 600 MG CAPSULE PO SCH ×2 (09:19→20:38)
[2021-03-04] MEDS: BENZTROPINE MESYLATE 1 MG TABLET PO SCH ×3 (09:20→20:38)
[2021-03-04 09:24] VITALS: BP 109/59
[2021-03-04 15:44] VITALS: BP 132/67
[2021-03-04 19:30] VITALS: BP 126/68
[2021-03-05 03:50] VITALS: BP 112/67
[2021-03-05 07:51] VITALS: BP 101/62
[2021-03-05] MEDS: BENZTROPINE MESYLATE 1 MG TABLET PO SCH ×3 (08:51→20:47)
[2021-03-05] MEDS: LITHIUM CARBONATE 600 MG CAPSULE PO SCH ×2 (08:51→20:46)
[2021-03-05] MEDS: OLANZapine 10 MG TABLET PO SCH ×2 (08:51→20:47)
[2021-03-05 11:57] VITALS: BP 128/81
[2021-03-05 15:03] VITALS: BP 124/77
[2021-03-05 19:53] VITALS: BP 122/79
[2021-03-06 05:12] VITALS: BP 106/68
[2021-03-06 07:22] VITALS: BP 110/70
[2021-03-06] MEDS: LITHIUM CARBONATE 600 MG CAPSULE PO SCH ×2 (08:15→20:31)
[2021-03-06] MEDS: BENZTROPINE MESYLATE 1 MG TABLET PO SCH ×3 (08:15→20:31)
[2021-03-06] MEDS: OLANZapine 10 MG TABLET PO SCH ×2 (08:15→20:32)
[2021-03-06 15:03] VITALS: BP 112/67
[2021-03-06 19:24] VITALS: BP 119/69
[2021-03-07 05:15] VITALS: BP 98/57
[2021-03-07] MEDS: OLANZapine 10 MG TABLET PO SCH ×2 (08:01→20:09)
[2021-03-07] MEDS: LITHIUM CARBONATE 600 MG CAPSULE PO SCH ×2 (08:01→20:09)
[2021-03-07] MEDS: BENZTROPINE MESYLATE 1 MG TABLET PO SCH ×3 (08:01→20:09)
[2021-03-07 08:23] VITALS: BP 114/66
[2021-03-07 15:58] VITALS: BP 112/68
[2021-03-07 19:45] VITALS: BP 119/80
[2021-03-08 04:30] VITALS: BP 94/55
[2021-03-08 07:51] VITALS: BP 106/65
[2021-03-08] MEDS: LITHIUM CARBONATE 600 MG CAPSULE PO SCH ×2 (08:17→20:12)
[2021-03-08] MEDS: BENZTROPINE MESYLATE 1 MG TABLET PO SCH ×3 (08:17→20:12)
[2021-03-08] MEDS: OLANZapine 10 MG TABLET PO SCH ×2 (08:18→20:12)
[2021-03-08 15:55] VITALS: BP 110/82
[2021-03-08 19:50] VITALS: BP 119/83
[2021-03-09 04:35] VITALS: BP 96/60
[2021-03-09 07:49] VITALS: BP 98/50
[2021-03-09] MEDS: LITHIUM CARBONATE 600 MG CAPSULE PO SCH ×2 (08:55→20:47)
[2021-03-09] MEDS: OLANZapine 10 MG TABLET PO SCH ×2 (08:55→20:48)
[2021-03-09] MEDS: BENZTROPINE MESYLATE 1 MG TABLET PO SCH ×3 (08:55→20:47)
[2021-03-09 15:32] VITALS: BP 119/72
[2021-03-09 19:48] VITALS: BP 111/64
[2021-03-10 05:12] VITALS: BP 102/79
[2021-03-10 07:42] VITALS: BP 91/64
[2021-03-10] MEDS: LITHIUM CARBONATE 600 MG CAPSULE PO SCH ×2 (08:39→20:13)
[2021-03-10] MEDS: BENZTROPINE MESYLATE 1 MG TABLET PO SCH ×3 (08:39→20:12)
[2021-03-10] MEDS: OLANZapine 10 MG TABLET PO SCH ×2 (08:39→20:13)
[2021-03-10 12:04] LABS: COVID AG,FIA SOURCE NASAL SWAB
[2021-03-10 15:40] VITALS: BP 141/90
[2021-03-10 19:25] VITALS: BP 116/75
[2021-03-11 05:05] VITALS: BP 94/60
[2021-03-11 08:09] VITALS: BP 100/62
[2021-03-11] MEDS: LITHIUM CARBONATE 600 MG CAPSULE PO SCH ×2 (08:10→20:14)
[2021-03-11] MEDS: OLANZapine 10 MG TABLET PO SCH ×2 (08:10→20:14)
[2021-03-11] MEDS: BENZTROPINE MESYLATE 1 MG TABLET PO SCH ×3 (08:10→20:14)
[2021-03-11 20:00] VITALS: BP 115/81
[2021-03-12 05:35] VITALS: BP 97/60
[2021-03-12 08:18] VITALS: BP 114/76
[2021-03-12] MEDS: BENZTROPINE MESYLATE 1 MG TABLET PO SCH ×3 (08:58→20:13)
[2021-03-12] MEDS: OLANZapine 10 MG TABLET PO SCH ×2 (08:58→20:13)
[2021-03-12] MEDS: LITHIUM CARBONATE 600 MG CAPSULE PO SCH ×2 (08:58→20:13)
[2021-03-12 15:58] VITALS: BP 110/77
[2021-03-12 19:30] VITALS: BP 114/74
[2021-03-13 04:00] VITALS: BP 111/78
[2021-03-13] MEDS: BENZTROPINE MESYLATE 1 MG TABLET PO SCH ×3 (08:33→20:11)
[2021-03-13] MEDS: LITHIUM CARBONATE 600 MG CAPSULE PO SCH ×2 (08:33→20:11)
[2021-03-13] MEDS: OLANZapine 10 MG TABLET PO SCH ×2 (08:33→20:11)
[2021-03-13 08:50] VITALS: BP 123/76
[2021-03-13 15:33] VITALS: BP 129/83
[2021-03-13 19:29] VITALS: BP 125/76
[2021-03-14 05:13] VITALS: BP 98/59
[2021-03-14 08:00] VITALS: BP 124/77
[2021-03-14] MEDS: OLANZapine 10 MG TABLET PO SCH (08:50)
[2021-03-14] MEDS: BENZTROPINE MESYLATE 1 MG TABLET PO SCH ×2 (08:51→16:20)
[2021-03-14] MEDS: LITHIUM CARBONATE 600 MG CAPSULE PO SCH (08:51)
[2021-03-14 15:32] VITALS: BP 125/87
[2021-03-14 17:39] LABS: COVID AG,FIA SOURCE NASAL SWAB
[2021-03-14 20:00] VITALS: BP 139/90
[2021-03-14] MEDS ORDERED: INFLUENZA VIRUS VACCINE QVS 2021-22 (6MO+)/PF 60 MCG/0.5 ML SYRINGE IM. ONE (23:30)
[2021-03-15] MEDS: LITHIUM CARBONATE 600 MG CAPSULE PO SCH ×2 (08:35→16:19)
[2021-03-15] MEDS: BENZTROPINE MESYLATE 1 MG TABLET PO SCH ×3 (08:35→16:19)
[2021-03-15] MEDS: OLANZapine 10 MG TABLET PO SCH ×2 (08:36→16:20)
[2021-03-15 08:45] VITALS: BP 130/87
[2021-03-15] MEDS ORDERED: DOCUSATE SODIUM 100 MG CAPSULE PO PRN (09:00)
[2021-03-15] MEDS ORDERED: LOPERAMIDE HCL 2 MG CAPSULE PO PRN (09:00)
[2021-03-15] MEDS ORDERED: ACETAMINOPHEN 325 MG TABLET PO PRN (09:00)
[2021-03-15] MEDS ORDERED: ALBUTEROL SULFATE HFA 90 MCG/PUFF 8 GM INHALER IH PRN (09:00)
[2021-03-15] MEDS ORDERED: MAGNESIUM HYDROXIDE SUSPENSION 30 ML UDCUP PO PRN (09:00)
[2021-03-15] MEDS ORDERED: CloNIDine HCL 0.1 MG TABLET PO PRN (09:00)
[2021-03-15] MEDS ORDERED: PETROLATUM,WHITE 28 GM JELLY TP PRN (09:00)
[2021-03-15] MEDS ORDERED: ONDANSETRON HCL 4 MG TABLET PO PRN (09:00)
[2021-03-15] MEDS ORDERED: IBUPROFEN 400 MG TABLET PO PRN (09:00)
[2021-03-15] MEDS ORDERED: MAG HYDROX/AL HYDROX/SIMETH ES 30 ML SUSPENSION UDCUP PO PRN (09:00)
[2021-03-15] MEDS ORDERED: GuaiFENesin/D-METHORPHAN [SUGAR-FREE] 200-20MG/10 ML SYRUP UDCUP PO PRN (09:00)
[2021-03-15 16:45] VITALS: BP 116/70
[2021-03-16] MEDS: BENZTROPINE MESYLATE 1 MG TABLET PO SCH ×3 (08:26→16:17)
[2021-03-16] MEDS: LITHIUM CARBONATE 600 MG CAPSULE PO SCH ×2 (08:27→16:16)
[2021-03-16] MEDS: OLANZapine 10 MG TABLET PO SCH ×2 (08:27→16:17)
[2021-03-16 08:28] VITALS: BP 110/72
[2021-03-16 16:00] VITALS: BP 115/78
[2021-03-17] MEDS: OLANZapine 10 MG TABLET PO SCH ×2 (08:11→16:47)
[2021-03-17] MEDS: LITHIUM CARBONATE 600 MG CAPSULE PO SCH ×2 (08:11→16:48)
[2021-03-17] MEDS: BENZTROPINE MESYLATE 1 MG TABLET PO SCH ×3 (08:11→16:47)
[2021-03-17 08:45] VITALS: BP 116/70
[2021-03-17 18:15] VITALS: BP 115/77
[2021-03-18 08:25] VITALS: BP 122/83
[2021-03-18] MEDS: OLANZapine 10 MG TABLET PO SCH ×2 (08:55→16:40)
[2021-03-18] MEDS: BENZTROPINE MESYLATE 1 MG TABLET PO SCH ×3 (08:56→16:40)
[2021-03-18] MEDS: LITHIUM CARBONATE 600 MG CAPSULE PO SCH ×2 (08:56→16:40)
[2021-03-18 16:39] VITALS: BP 126/74
[2021-03-19] MEDS: OLANZapine 10 MG TABLET PO SCH ×2 (08:48→17:21)
[2021-03-19] MEDS: BENZTROPINE MESYLATE 1 MG TABLET PO SCH ×3 (08:48→17:22)
[2021-03-19] MEDS: LITHIUM CARBONATE 600 MG CAPSULE PO SCH ×2 (08:48→17:21)
[2021-03-19 09:24] VITALS: BP 122/81
[2021-03-19 16:18] VITALS: BP 129/77
[2021-03-20 08:25] VITALS: BP 109/70
[2021-03-20] MEDS: OLANZapine 10 MG TABLET PO SCH ×2 (08:55→17:24)
[2021-03-20] MEDS: LITHIUM CARBONATE 600 MG CAPSULE PO SCH ×2 (08:55→17:24)
[2021-03-20] MEDS: BENZTROPINE MESYLATE 1 MG TABLET PO SCH ×3 (08:55→17:24)
[2021-03-21] MEDS: OLANZapine 10 MG TABLET PO SCH ×2 (08:29→15:57)
[2021-03-21] MEDS: LITHIUM CARBONATE 600 MG CAPSULE PO SCH ×2 (08:29→15:57)
[2021-03-21] MEDS: BENZTROPINE MESYLATE 1 MG TABLET PO SCH ×3 (08:29→15:57)
[2021-03-21 08:53] LABS: COVID AG,FIA SOURCE NASOPHARYNGEAL
[2021-03-21 10:13] VITALS: BP 97/60
[2021-03-21 16:43] VITALS: BP 136/78
[2021-03-22] MEDS: LITHIUM CARBONATE 600 MG CAPSULE PO SCH ×2 (08:28→16:10)
[2021-03-22] MEDS: BENZTROPINE MESYLATE 1 MG TABLET PO SCH ×3 (08:28→16:10)
[2021-03-22] MEDS: OLANZapine 10 MG TABLET PO SCH ×2 (08:29→16:10)
[2021-03-22 08:32] VITALS: BP 118/79
[2021-03-22 16:26] VITALS: BP 116/77
[2021-03-23 08:00] VITALS: BP 102/65
[2021-03-23] MEDS: OLANZapine 10 MG TABLET PO SCH ×2 (08:16→16:27)
[2021-03-23] MEDS: LITHIUM CARBONATE 600 MG CAPSULE PO SCH ×2 (08:16→16:27)
[2021-03-23] MEDS: BENZTROPINE MESYLATE 1 MG TABLET PO SCH ×3 (08:16→16:27)
[2021-03-23 16:00] VITALS: BP 112/76
[2021-03-24] MEDS: LITHIUM CARBONATE 600 MG CAPSULE PO SCH ×2 (08:53→16:35)
[2021-03-24] MEDS: OLANZapine 10 MG TABLET PO SCH ×2 (08:53→16:35)
[2021-03-24] MEDS: BENZTROPINE MESYLATE 1 MG TABLET PO SCH ×3 (08:53→16:35)
[2021-03-24 10:08] VITALS: BP 120/78
[2021-03-24 16:45] VITALS: BP 114/75
[2021-03-24 16:46] VITALS: BP 114/75
[2021-03-25 08:00] VITALS: BP 132/83
[2021-03-25] MEDS: LITHIUM CARBONATE 600 MG CAPSULE PO SCH ×2 (08:44→16:25)
[2021-03-25] MEDS: OLANZapine 10 MG TABLET PO SCH ×2 (08:44→16:25)
[2021-03-25] MEDS: BENZTROPINE MESYLATE 1 MG TABLET PO SCH ×3 (08:44→16:25)
[2021-03-25 16:00] VITALS: BP 103/69
[2021-03-26 08:00] VITALS: BP 123/76
[2021-03-26] MEDS: OLANZapine 10 MG TABLET PO SCH ×2 (08:17→16:30)
[2021-03-26] MEDS: BENZTROPINE MESYLATE 1 MG TABLET PO SCH ×3 (08:17→16:30)
[2021-03-26] MEDS: LITHIUM CARBONATE 600 MG CAPSULE PO SCH ×2 (09:16→17:09)
[2021-03-26 16:20] VITALS: BP 123/80
[2021-03-27 08:30] VITALS: BP 119/72
[2021-03-27] MEDS: OLANZapine 10 MG TABLET PO SCH ×2 (08:34→16:10)
[2021-03-27] MEDS: BENZTROPINE MESYLATE 1 MG TABLET PO SCH ×3 (08:34→16:10)
[2021-03-27] MEDS: LITHIUM CARBONATE 600 MG CAPSULE PO SCH ×2 (08:34→16:10)
[2021-03-27 16:16] VITALS: BP 122/73
[2021-03-28] MEDS: BENZTROPINE MESYLATE 1 MG TABLET PO SCH ×3 (08:44→18:01)
[2021-03-28] MEDS: LITHIUM CARBONATE 600 MG CAPSULE PO SCH ×2 (08:44→18:01)
[2021-03-28] MEDS: OLANZapine 10 MG TABLET PO SCH ×2 (08:44→20:09)
[2021-03-28 10:08] VITALS: BP 130/80
[2021-03-28 11:01] LABS: COVID AG,FIA SOURCE NASAL SWAB
[2021-03-28 16:00] VITALS: BP 117/77
[2021-03-29] MEDS: BENZTROPINE MESYLATE 1 MG TABLET PO SCH ×4 (08:15→17:38)
[2021-03-29] MEDS: LITHIUM CARBONATE 600 MG CAPSULE PO SCH ×3 (08:15→20:30)
[2021-03-29] MEDS: OLANZapine 10 MG TABLET PO SCH ×2 (08:15→20:29)
[2021-03-29 16:14] VITALS: BP 114/74
[2021-03-30] MEDS: LITHIUM CARBONATE 600 MG CAPSULE PO SCH ×2 (08:29→20:07)
[2021-03-30] MEDS: OLANZapine 10 MG TABLET PO SCH ×2 (08:29→20:07)
[2021-03-30] MEDS: BENZTROPINE MESYLATE 1 MG TABLET PO SCH ×3 (08:30→16:05)
[2021-03-30 09:48] VITALS: BP 126/84
[2021-03-30 16:00] VITALS: BP 111/74
[2021-03-31] MEDS: LITHIUM CARBONATE 600 MG CAPSULE PO SCH ×2 (08:57→20:03)
[2021-03-31] MEDS: OLANZapine 10 MG TABLET PO SCH ×2 (08:58→20:03)
[2021-03-31] MEDS: BENZTROPINE MESYLATE 1 MG TABLET PO SCH ×3 (08:58→16:05)
[2021-03-31 16:50] VITALS: BP 123/86
[2021-04-01] MEDS: OLANZapine 10 MG TABLET PO SCH ×2 (08:51→20:11)
[2021-04-01] MEDS: BENZTROPINE MESYLATE 1 MG TABLET PO SCH ×3 (08:51→16:12)
[2021-04-01] MEDS: LITHIUM CARBONATE 600 MG CAPSULE PO SCH ×2 (08:53→20:11)
[2021-04-01 11:46] VITALS: BP 137/74
[2021-04-01 17:10] VITALS: BP 120/81
[2021-04-02] MEDS: BENZTROPINE MESYLATE 1 MG TABLET PO SCH ×3 (08:42→16:20)
[2021-04-02] MEDS: LITHIUM CARBONATE 600 MG CAPSULE PO SCH ×2 (08:42→20:17)
[2021-04-02] MEDS: OLANZapine 10 MG TABLET PO SCH ×2 (08:42→20:17)
[2021-04-02 09:49] VITALS: BP 113/70
[2021-04-02 16:00] VITALS: BP 120/80
[2021-04-03 08:00] VITALS: BP 126/86
[2021-04-03] MEDS: BENZTROPINE MESYLATE 1 MG TABLET PO SCH ×3 (09:00→16:44)
[2021-04-03] MEDS: LITHIUM CARBONATE 600 MG CAPSULE PO SCH ×2 (09:00→20:15)
[2021-04-03] MEDS: OLANZapine 10 MG TABLET PO SCH ×2 (09:00→20:15)
[2021-04-03 10:33] VITALS: BP 126/86
[2021-04-03] MEDS: HALOPERIDOL 5 MG TABLET PO PRN (13:11)
[2021-04-03 16:24] VITALS: BP 115/82
[2021-04-04 08:19] LABS: COVID AG,FIA SOURCE NASAL SWAB
[2021-04-04] MEDS: OLANZapine 10 MG TABLET PO SCH ×2 (08:28→20:07)
[2021-04-04] MEDS: LITHIUM CARBONATE 600 MG CAPSULE PO SCH ×2 (08:28→20:07)
[2021-04-04] MEDS: BENZTROPINE MESYLATE 1 MG TABLET PO SCH ×3 (08:28→16:02)
[2021-04-04 09:00] VITALS: BP 147/85
[2021-04-04] MEDS ORDERED: HALOPERIDOL 5 MG TABLET PO SCH (10:00)
[2021-04-04 16:00] VITALS: BP 130/84
[2021-04-04] MEDS: HALOPERIDOL 5 MG TABLET PO SCH (20:07)
[2021-04-05 08:00] VITALS: BP 136/84
[2021-04-05] MEDS: LITHIUM CARBONATE 600 MG CAPSULE PO SCH ×2 (09:17→20:09)
[2021-04-05] MEDS: BENZTROPINE MESYLATE 1 MG TABLET PO SCH ×3 (09:17→16:13)
[2021-04-05] MEDS: OLANZapine 10 MG TABLET PO SCH ×2 (09:17→20:09)
[2021-04-05] MEDS: HALOPERIDOL 5 MG TABLET PO SCH ×2 (09:17→20:09)
[2021-04-05 16:40] VITALS: BP 121/81
[2021-04-06] MEDS: BENZTROPINE MESYLATE 1 MG TABLET PO SCH ×3 (09:00→16:22)
[2021-04-06] MEDS: HALOPERIDOL 5 MG TABLET PO SCH ×2 (09:00→20:43)
[2021-04-06] MEDS: OLANZapine 10 MG TABLET PO SCH ×2 (09:01→20:43)
[2021-04-06] MEDS: LITHIUM CARBONATE 600 MG CAPSULE PO SCH ×2 (09:02→20:42)
[2021-04-06 10:43] VITALS: BP 124/78
[2021-04-06] MEDS: HALOPERIDOL 5 MG TABLET PO PRN (16:22)
[2021-04-06 16:27] VITALS: BP 118/79
[2021-04-07 06:55] LABS: ALANINE AMINOTRANSFERASE 18 U/L (12-78); ALBUMIN 3.1 g/dL (3.4-5.0); ANION GAP 5 mmol/L (8-16); ASPARTATE AMINOTRANSFERASE 12 U/L (15-37); BILIRUBIN,TOTAL 0.4 mg/dL (0.1-1.0); CALCIUM, TOTAL 8.6 mg/dL (8.8-10.5); CARBON DIOXIDE 29 mmol/L (22-29); CHLORIDE 107 mmol/L (98-107); CREATININE 0.96 mg/dL (0.60-1.30); GLOMERULAR FILTR. RATE CALC > 60 mL/min (>60); GLUCOSE,RANDOM 100 mg/dL (70-110); POTASSIUM 4.2 mmol/L (3.5-5.1); SODIUM SERUM 141 mmol/L (136-145); TOTAL PROTEIN, SERUM 6.5 g/dL (6.4-8.2); UREA NITROGEN, BLOOD 13 mg/dL (7-18)
[2021-04-07 07:13] LABS: ALKALINE PHOSPHATASE 92 U/L (46-116)
[2021-04-07 08:00] VITALS: BP 100/64
[2021-04-07] MEDS: HALOPERIDOL 5 MG TABLET PO SCH ×2 (08:38→20:32)
[2021-04-07] MEDS: BENZTROPINE MESYLATE 1 MG TABLET PO SCH ×3 (08:39→16:36)
[2021-04-07] MEDS: LITHIUM CARBONATE 600 MG CAPSULE PO SCH ×2 (08:39→20:32)
[2021-04-07] MEDS: OLANZapine 10 MG TABLET PO SCH ×2 (08:39→20:32)
[2021-04-07 16:17] VITALS: BP 131/70
[2021-04-07] MEDS: HALOPERIDOL 5 MG TABLET PO PRN (16:37)
[2021-04-08 08:55] VITALS: BP 112/72
[2021-04-08] MEDS: BENZTROPINE MESYLATE 1 MG TABLET PO SCH ×3 (09:34→16:14)
[2021-04-08] MEDS: HALOPERIDOL 5 MG TABLET PO SCH ×2 (09:34→20:13)
[2021-04-08] MEDS: LITHIUM CARBONATE 600 MG CAPSULE PO SCH ×2 (09:34→20:13)
[2021-04-08] MEDS: OLANZapine 10 MG TABLET PO SCH ×2 (09:35→20:13)
[2021-04-08 16:16] VITALS: BP 124/84
[2021-04-09] MEDS: LITHIUM CARBONATE 600 MG CAPSULE PO SCH ×2 (08:26→20:13)
[2021-04-09] MEDS: OLANZapine 10 MG TABLET PO SCH ×2 (08:27→20:13)
[2021-04-09] MEDS: HALOPERIDOL 5 MG TABLET PO SCH ×2 (08:27→20:13)
[2021-04-09] MEDS: BENZTROPINE MESYLATE 1 MG TABLET PO SCH ×3 (08:27→16:29)
[2021-04-09 10:17] VITALS: BP 120/76
[2021-04-09 16:25] VITALS: BP 115/80
[2021-04-10] MEDS: BENZTROPINE MESYLATE 1 MG TABLET PO SCH ×3 (08:07→16:29)
[2021-04-10] MEDS: LITHIUM CARBONATE 600 MG CAPSULE PO SCH ×2 (08:07→20:28)
[2021-04-10] MEDS: OLANZapine 10 MG TABLET PO SCH ×2 (08:07→20:28)
[2021-04-10] MEDS: HALOPERIDOL 5 MG TABLET PO SCH ×2 (08:07→20:28)
[2021-04-10 08:41] VITALS: BP 124/69
[2021-04-10 16:18] VITALS: BP 114/77
[2021-04-11] MEDS: HALOPERIDOL 5 MG TABLET PO SCH ×2 (08:38→20:45)
[2021-04-11] MEDS: LITHIUM CARBONATE 600 MG CAPSULE PO SCH ×2 (08:38→20:45)
[2021-04-11] MEDS: OLANZapine 10 MG TABLET PO SCH ×2 (08:38→20:45)
[2021-04-11] MEDS: BENZTROPINE MESYLATE 1 MG TABLET PO SCH ×3 (08:38→16:51)
[2021-04-11] MEDS: NICOTINE 14 MG/24 HOUR PATCH TD PRN (08:49)
[2021-04-11 09:33] VITALS: BP 114/67
[2021-04-11 15:13] LABS: COVID AG,FIA SOURCE NASOPHARYNGEAL
[2021-04-11 16:22] VITALS: BP 128/82
[2021-04-12 08:30] VITALS: BP 133/86
[2021-04-12] MEDS: LITHIUM CARBONATE 600 MG CAPSULE PO SCH ×2 (09:16→20:39)
[2021-04-12] MEDS: BENZTROPINE MESYLATE 1 MG TABLET PO SCH ×3 (09:16→17:12)
[2021-04-12] MEDS: HALOPERIDOL 5 MG TABLET PO SCH ×2 (09:17→20:39)
[2021-04-12] MEDS: OLANZapine 10 MG TABLET PO SCH ×2 (09:17→20:39)
[2021-04-12 16:24] VITALS: BP 109/69
[2021-04-13 08:00] VITALS: BP 133/83
[2021-04-13] MEDS: OLANZapine 10 MG TABLET PO SCH ×2 (08:37→20:39)
[2021-04-13] MEDS: LITHIUM CARBONATE 600 MG CAPSULE PO SCH ×2 (08:37→20:38)
[2021-04-13] MEDS: BENZTROPINE MESYLATE 1 MG TABLET PO SCH ×3 (08:37→16:20)
[2021-04-13] MEDS: HALOPERIDOL 5 MG TABLET PO SCH ×2 (08:38→20:39)
[2021-04-13 16:23] VITALS: BP 101/71
[2021-04-14] MEDS: HALOPERIDOL 5 MG TABLET PO SCH ×2 (09:15→20:30)
[2021-04-14] MEDS: BENZTROPINE MESYLATE 1 MG TABLET PO SCH ×3 (09:15→16:13)
[2021-04-14] MEDS: OLANZapine 10 MG TABLET PO SCH ×2 (09:15→20:30)
[2021-04-14] MEDS: LITHIUM CARBONATE 600 MG CAPSULE PO SCH ×2 (09:15→20:30)
[2021-04-14 11:41] VITALS: BP 133/81
[2021-04-14 16:00] VITALS: BP 131/83
[2021-04-15] MEDS: OLANZapine 10 MG TABLET PO SCH ×2 (09:02→20:33)
[2021-04-15] MEDS: BENZTROPINE MESYLATE 1 MG TABLET PO SCH ×3 (09:02→16:49)
[2021-04-15] MEDS: LITHIUM CARBONATE 600 MG CAPSULE PO SCH ×2 (09:02→20:33)
[2021-04-15] MEDS: HALOPERIDOL 5 MG TABLET PO SCH ×2 (09:02→20:33)
[2021-04-15] MEDS: NICOTINE 14 MG/24 HOUR PATCH TD PRN (09:16)
[2021-04-15 09:40] VITALS: BP 146/86
[2021-04-15 16:34] VITALS: BP 133/83
[2021-04-16] MEDS: BENZTROPINE MESYLATE 1 MG TABLET PO SCH ×3 (08:30→16:30)
[2021-04-16] MEDS: OLANZapine 10 MG TABLET PO SCH ×2 (08:30→20:28)
[2021-04-16] MEDS: LITHIUM CARBONATE 600 MG CAPSULE PO SCH ×2 (08:30→20:28)
[2021-04-16] MEDS: HALOPERIDOL 5 MG TABLET PO SCH ×2 (08:31→20:28)
[2021-04-16 08:34] VITALS: BP 135/89
[2021-04-16] MEDS: NICOTINE 14 MG/24 HOUR PATCH TD PRN (09:06)
[2021-04-16 16:29] VITALS: BP 127/70
[2021-04-17] MEDS: LITHIUM CARBONATE 600 MG CAPSULE PO SCH ×2 (08:30→20:12)
[2021-04-17] MEDS: HALOPERIDOL 5 MG TABLET PO SCH ×2 (08:31→20:13)
[2021-04-17] MEDS: OLANZapine 10 MG TABLET PO SCH ×2 (08:31→20:13)
[2021-04-17] MEDS: BENZTROPINE MESYLATE 1 MG TABLET PO SCH ×3 (08:31→16:14)
[2021-04-17] MEDS: NICOTINE 14 MG/24 HOUR PATCH TD PRN (09:16)
[2021-04-17 09:45] VITALS: BP 126/84
[2021-04-17 16:00] VITALS: BP 122/84
[2021-04-18] MEDS: HALOPERIDOL 5 MG TABLET PO SCH ×2 (08:57→20:19)
[2021-04-18] MEDS: BENZTROPINE MESYLATE 1 MG TABLET PO SCH ×3 (08:57→16:58)
[2021-04-18] MEDS: OLANZapine 10 MG TABLET PO SCH ×2 (08:57→20:19)
[2021-04-18] MEDS: LITHIUM CARBONATE 600 MG CAPSULE PO SCH ×2 (08:58→20:19)
[2021-04-18 09:12] VITALS: BP 122/77
[2021-04-18] MEDS: NICOTINE 14 MG/24 HOUR PATCH TD PRN (11:26)
[2021-04-18 16:02] LABS: COVID AG,FIA SOURCE NASOPHARYNGEAL
[2021-04-18 16:18] VITALS: BP 136/89
[2021-04-19 09:25] VITALS: BP 119/83
[2021-04-19] MEDS: BENZTROPINE MESYLATE 1 MG TABLET PO SCH ×3 (09:47→16:06)
[2021-04-19] MEDS: OLANZapine 10 MG TABLET PO SCH ×2 (09:47→20:04)
[2021-04-19] MEDS: HALOPERIDOL 5 MG TABLET PO SCH ×2 (09:47→20:04)
[2021-04-19] MEDS: LITHIUM CARBONATE 600 MG CAPSULE PO SCH ×2 (09:47→20:04)
[2021-04-19 16:00] VITALS: BP 131/87
[2021-04-20 08:00] VITALS: BP 119/72
[2021-04-20] MEDS: HALOPERIDOL 5 MG TABLET PO SCH ×2 (09:37→20:05)
[2021-04-20] MEDS: BENZTROPINE MESYLATE 1 MG TABLET PO SCH ×3 (09:37→16:01)
[2021-04-20] MEDS: LITHIUM CARBONATE 600 MG CAPSULE PO SCH ×2 (09:37→20:13)
[2021-04-20] MEDS: OLANZapine 10 MG TABLET PO SCH ×2 (09:37→20:05)
[2021-04-20 16:00] VITALS: BP 129/89
[2021-04-21 08:33] VITALS: BP 128/84
[2021-04-21] MEDS: LITHIUM CARBONATE 600 MG CAPSULE PO SCH ×2 (08:47→20:51)
[2021-04-21] MEDS: BENZTROPINE MESYLATE 1 MG TABLET PO SCH ×3 (08:48→16:36)
[2021-04-21] MEDS: HALOPERIDOL 5 MG TABLET PO SCH ×2 (08:48→20:50)
[2021-04-21] MEDS: OLANZapine 10 MG TABLET PO SCH ×2 (08:48→20:50)
[2021-04-21] MEDS: NICOTINE 14 MG/24 HOUR PATCH TD PRN (09:25)
[2021-04-21 16:18] VITALS: BP 125/77
[2021-04-22] MEDS: OLANZapine 10 MG TABLET PO SCH ×2 (08:36→20:59)
[2021-04-22] MEDS: BENZTROPINE MESYLATE 1 MG TABLET PO SCH ×3 (08:36→16:54)
[2021-04-22] MEDS: LITHIUM CARBONATE 600 MG CAPSULE PO SCH ×2 (08:36→20:59)
[2021-04-22] MEDS: HALOPERIDOL 5 MG TABLET PO SCH ×2 (08:36→20:59)
[2021-04-22] MEDS: NICOTINE 14 MG/24 HOUR PATCH TD PRN (08:46)
[2021-04-22 08:56] VITALS: BP 121/73
[2021-04-22 16:00] VITALS: BP 120/75
[2021-04-23] MEDS: HALOPERIDOL 5 MG TABLET PO SCH ×2 (08:39→20:12)
[2021-04-23] MEDS: LITHIUM CARBONATE 600 MG CAPSULE PO SCH ×2 (08:39→20:12)
[2021-04-23] MEDS: OLANZapine 10 MG TABLET PO SCH ×2 (08:39→20:12)
[2021-04-23] MEDS: BENZTROPINE MESYLATE 1 MG TABLET PO SCH ×3 (08:39→16:21)
[2021-04-23] MEDS: NICOTINE 14 MG/24 HOUR PATCH TD PRN (08:43)
[2021-04-23 09:05] VITALS: BP 121/73
[2021-04-23 16:24] VITALS: BP 114/77
[2021-04-24 08:05] VITALS: BP 114/64
[2021-04-24] MEDS: HALOPERIDOL 5 MG TABLET PO SCH ×2 (08:40→20:30)
[2021-04-24] MEDS: BENZTROPINE MESYLATE 1 MG TABLET PO SCH ×3 (08:40→16:25)
[2021-04-24] MEDS: OLANZapine 10 MG TABLET PO SCH ×2 (08:40→20:30)
[2021-04-24] MEDS: LITHIUM CARBONATE 600 MG CAPSULE PO SCH ×2 (08:40→20:30)
[2021-04-24] MEDS: NICOTINE 14 MG/24 HOUR PATCH TD PRN (09:41)
[2021-04-24 16:00] VITALS: BP 119/74
[2021-04-25] MEDS: BENZTROPINE MESYLATE 1 MG TABLET PO SCH ×3 (08:48→16:07)
[2021-04-25] MEDS: LITHIUM CARBONATE 600 MG CAPSULE PO SCH ×2 (08:48→20:29)
[2021-04-25] MEDS: HALOPERIDOL 5 MG TABLET PO SCH ×2 (08:48→20:29)
[2021-04-25] MEDS: OLANZapine 10 MG TABLET PO SCH ×2 (08:48→20:29)
[2021-04-25] MEDS: NICOTINE 14 MG/24 HOUR PATCH TD PRN (09:14)
[2021-04-25 09:34] VITALS: BP 123/73
[2021-04-25 16:49] VITALS: BP 140/75
[2021-04-26 07:45] VITALS: BP 133/89
[2021-04-26 08:35] VITALS: BP 133/87
[2021-04-26] MEDS: HALOPERIDOL 5 MG TABLET PO SCH ×2 (08:54→20:05)
[2021-04-26] MEDS: OLANZapine 10 MG TABLET PO SCH ×2 (08:55→20:05)
[2021-04-26] MEDS: BENZTROPINE MESYLATE 1 MG TABLET PO SCH ×3 (08:55→16:10)
[2021-04-26] MEDS: LITHIUM CARBONATE 600 MG CAPSULE PO SCH ×2 (08:55→20:05)
[2021-04-26] MEDS: NICOTINE 14 MG/24 HOUR PATCH TD PRN (09:08)
[2021-04-26 13:50] LABS: COVID AG,FIA SOURCE NASOPHARYNGEAL
[2021-04-26 16:41] VITALS: BP 104/72
[2021-04-27] MEDS: OLANZapine 10 MG TABLET PO SCH ×2 (08:35→20:40)
[2021-04-27] MEDS: LITHIUM CARBONATE 600 MG CAPSULE PO SCH ×2 (08:35→20:40)
[2021-04-27] MEDS: HALOPERIDOL 5 MG TABLET PO SCH ×2 (08:35→20:40)
[2021-04-27] MEDS: BENZTROPINE MESYLATE 1 MG TABLET PO SCH ×3 (08:35→16:21)
[2021-04-27 09:15] VITALS: BP 118/76
[2021-04-27] MEDS: NICOTINE 14 MG/24 HOUR PATCH TD PRN (09:36)
[2021-04-27 16:25] VITALS: BP 117/71
[2021-04-28 08:30] VITALS: BP 115/74
[2021-04-28] MEDS: BENZTROPINE MESYLATE 1 MG TABLET PO SCH ×3 (08:49→16:02)
[2021-04-28] MEDS: LITHIUM CARBONATE 600 MG CAPSULE PO SCH ×2 (08:49→20:42)
[2021-04-28] MEDS: OLANZapine 10 MG TABLET PO SCH ×2 (08:49→20:42)
[2021-04-28] MEDS: HALOPERIDOL 5 MG TABLET PO SCH ×2 (08:49→20:42)
[2021-04-28] MEDS: NICOTINE 14 MG/24 HOUR PATCH TD PRN (08:51)
[2021-04-28 16:00] VITALS: BP 129/84
[2021-04-29 08:07] VITALS: BP 116/75
[2021-04-29] MEDS: LITHIUM CARBONATE 600 MG CAPSULE PO SCH ×2 (08:40→20:43)
[2021-04-29] MEDS: OLANZapine 10 MG TABLET PO SCH ×2 (08:41→20:42)
[2021-04-29] MEDS: HALOPERIDOL 5 MG TABLET PO SCH ×2 (08:41→20:42)
[2021-04-29] MEDS: BENZTROPINE MESYLATE 1 MG TABLET PO SCH ×3 (08:41→16:03)
[2021-04-29] MEDS: NICOTINE 14 MG/24 HOUR PATCH TD PRN (09:36)
[2021-04-29 16:31] VITALS: BP 118/79
[2021-04-30 08:00] VITALS: BP 112/74
[2021-04-30] MEDS: OLANZapine 10 MG TABLET PO SCH ×2 (09:08→20:34)
[2021-04-30] MEDS: BENZTROPINE MESYLATE 1 MG TABLET PO SCH ×3 (09:08→16:19)
[2021-04-30] MEDS: HALOPERIDOL 5 MG TABLET PO SCH ×2 (09:08→20:34)
[2021-04-30] MEDS: LITHIUM CARBONATE 600 MG CAPSULE PO SCH ×2 (09:08→20:34)
[2021-04-30] MEDS: NICOTINE 14 MG/24 HOUR PATCH TD PRN (09:15)
[2021-04-30 16:08] VITALS: BP 124/80
[2021-05-01 08:00] VITALS: BP 137/88
[2021-05-01] MEDS: BENZTROPINE MESYLATE 1 MG TABLET PO SCH ×3 (08:32→16:09)
[2021-05-01] MEDS: LITHIUM CARBONATE 600 MG CAPSULE PO SCH ×2 (08:32→20:11)
[2021-05-01] MEDS: HALOPERIDOL 5 MG TABLET PO SCH ×2 (08:32→20:11)
[2021-05-01] MEDS: OLANZapine 10 MG TABLET PO SCH ×2 (08:32→20:11)
[2021-05-01] MEDS: NICOTINE 14 MG/24 HOUR PATCH TD PRN (08:36)
[2021-05-01 16:25] VITALS: BP 103/71
[2021-05-02] MEDS: BENZTROPINE MESYLATE 1 MG TABLET PO SCH ×3 (08:27→16:15)
[2021-05-02 08:28] VITALS: BP 120/64
[2021-05-02] MEDS: OLANZapine 10 MG TABLET PO SCH ×2 (08:28→20:28)
[2021-05-02] MEDS: LITHIUM CARBONATE 600 MG CAPSULE PO SCH ×2 (08:28→20:28)
[2021-05-02] MEDS: HALOPERIDOL 5 MG TABLET PO SCH ×2 (08:28→20:28)
[2021-05-02] MEDS: NICOTINE 14 MG/24 HOUR PATCH TD PRN (08:41)
[2021-05-02 16:00] VITALS: BP 123/84
[2021-05-03 07:41] LABS: COVID AG,FIA SOURCE NASAL SWAB
[2021-05-03] MEDS: OLANZapine 10 MG TABLET PO SCH ×2 (08:44→20:17)
[2021-05-03] MEDS: LITHIUM CARBONATE 600 MG CAPSULE PO SCH ×2 (08:44→20:16)
[2021-05-03] MEDS: HALOPERIDOL 5 MG TABLET PO SCH ×2 (08:44→20:17)
[2021-05-03] MEDS: BENZTROPINE MESYLATE 1 MG TABLET PO SCH ×3 (08:44→16:06)
[2021-05-03 08:59] VITALS: BP 142/89
[2021-05-03] MEDS ORDERED: COVID-19 VACCINE, MRNA(PFIZER)/PF 30 MCG/0.3 ML VIAL IM. ONE (09:30)
[2021-05-03] MEDS: NICOTINE 14 MG/24 HOUR PATCH TD PRN (09:52)
[2021-05-03 16:21] VITALS: BP 116/78
[2021-05-04] MEDS: HALOPERIDOL 5 MG TABLET PO SCH (08:06)
[2021-05-04] MEDS: OLANZapine 10 MG TABLET PO SCH (08:06)
[2021-05-04] MEDS: LITHIUM CARBONATE 600 MG CAPSULE PO SCH (08:06)
[2021-05-04] MEDS: BENZTROPINE MESYLATE 1 MG TABLET PO SCH (08:06)
[2021-05-04] MEDS ORDERED: HALO5TAB2 PO (08:39)
== END 2021-05-04 09:45 | disposition home or self-care (01) | DRG 750 ==
LOC: 6N 16:50 → 6S 02-19 18:01 → 6N 02-20 08:19 → 3EI 03-14 19:10
PROVIDERS: ADMIT Psychiatry & Neurology Child & Adolescent Psychiatry; ATTEND Psychiatry & Neurology Child & Adolescent Psychiatry
DX: F25.0 Schizoaffective disorder, bipolar type (principal); Z59.00 Homelessness unspecified; F17.210 Nicotine dependence, cigarettes, uncomplicated; F41.9 Anxiety disorder, unspecified; Z20.822 Contact with and (suspected) exposure to COVID-19; G44.209 Tension-type headache, unspecified, not intractable; G47.00 Insomnia, unspecified
CPT/HCPCS: 0001A; 71045; 80053; 87081; 91300; J7050; 36415-L1; 36415-TC

== ENCOUNTER 2021-10-03 15:51 | Emergency (ER) | payer MEDICAID, OTHER ==
[~2021-10-03] VITALS: Ht 170.2 cm; Wt 63.6 kg
[~2021-10-03 15:51] MED LIST changes: -BENZ1TAB10 PO; +BENZ1TAB96 PO; +HALO5TAB2 PO
[2021-10-03] MEDS ORDERED: HALOPERIDOL LACTATE 5 MG/ML VIAL IM ONE (17:00)
[2021-10-03] MEDS ORDERED: LORazepam 2 MG/ML VIAL IM ONE (17:00)
[2021-10-03] MEDS ORDERED: DiphenhydrAMINE HCL 50 MG/ML VIAL IM ONE (17:00)
[2021-10-03] MEDS ORDERED: PALI234D IM (17:04)
[2021-10-03 17:07] LABS: ANION GAP 12 mmol/L (8-16); CALCIUM, TOTAL 8.5 mg/dL (8.8-10.5); CARBON DIOXIDE 23 mmol/L (22-29); CHLORIDE 106 mmol/L (98-107); GLOMERULAR FILTR. RATE CALC > 60 mL/min (>60); GLUCOSE,RANDOM 143 mg/dL (70-110); POTASSIUM 3.1 mmol/L (3.5-5.1); SODIUM SERUM 141 mmol/L (136-145); UREA NITROGEN, BLOOD 5 mg/dL (7-18)
[2021-10-03 17:12] LABS: BASOPHILS % (AUTO) 0.8 % (0.0-2.0); EOSINOPHILS % (AUTO) 3.4 % (1.0-6.0); HEMATOCRIT 38.6 % (41-53); HEMOGLOBIN 13.2 g/dL (13.5-17.5); LYMPHOCYTES # (AUTO) 1.7 K/uL (1.0-4.8); LYMPHOCYTES % (AUTO) 15.7 % (22.0-44.0); MEAN CORPUSCULAR HEMOGLOBIN 31.8 pg (26.0-34.0); MEAN CORPUSCULAR HGB CONC 34.3 G/dL (31.0-37.0); MEAN CORPUSCULAR VOLUME 93 fL (80-100); MONOCYTES # (AUTO) 0.9 K/uL (0.1-1.0); MONOCYTES % (AUTO) 8.5 % (2.0-9.0); NEUTROPHILS # (AUTO) 7.6 K/uL (1.8-7.7); NEUTROPHILS % (AUTO) 71.6 % (40.0-70.0); PLATELET COUNT (AUTO) 409 K/uL (150-450); RED BLOOD CELL COUNT(AUTO) 4.16 MIL/uL (4.50-5.90); RED CELL DISTRIBUTION WIDTH 13.7 % (11.5-14.5)
[2021-10-03 17:13] LABS: ALANINE AMINOTRANSFERASE 23 U/L (12-78); ALBUMIN 3.5 g/dL (3.4-5.0); ALKALINE PHOSPHATASE 84 U/L (46-116); ASPARTATE AMINOTRANSFERASE 12 U/L (15-37); BILIRUBIN,TOTAL 0.6 mg/dL (0.1-1.0); TOTAL PROTEIN, SERUM 6.8 g/dL (6.4-8.2)
[2021-10-03 18:21] LABS: AMPHET/METH SCREEN,URINE NEGATIVE (NEGATIVE); BARBITURATE SCREEN, URINE NEGATIVE (NEGATIVE); BENZODIAZEPINES SCREEN,URINE NEGATIVE (NEGATIVE); CANNABINOID SCREEN,URINE NEGATIVE (NEGATIVE); COCAINE SCREEN,URINE NEGATIVE (NEGATIVE); METHADONE SCREEN, URINE NEGATIVE (NEGATIVE); OPIATE SCREEN,URINE NEGATIVE (NEGATIVE)
[2021-10-03 18:22] LABS: PHENCYCLIDINE SCREEN,URINE NEGATIVE (NEGATIVE)
[2021-10-03] MEDS ORDERED: POTASSIUM CHLORIDE 10% 40 MEQ/30 ML LIQUID UDCUP PO ONE (20:45)
[2021-10-03 22:13] LABS: COVID AG,FIA SOURCE NASOPHARYNGEAL
[2021-10-04 14:38] VITALS: BP 124/72
[2021-10-04] MEDS ORDERED: LORazepam 1 MG TABLET PO ONE (15:30)
[2021-10-04] MEDS ORDERED: HALOPERIDOL 5 MG TABLET PO ONE (15:30)
== END 2021-10-04 19:21 | disposition home or self-care (01) ==
LOC: EMS 15:51
DX: F25.1 Schizoaffective disorder, depressive type (principal); E87.6 Hypokalemia; F41.9 Anxiety disorder, unspecified; F31.9 Bipolar disorder, unspecified; F17.210 Nicotine dependence, cigarettes, uncomplicated; Z20.822 Contact with and (suspected) exposure to COVID-19
CPT/HCPCS: 36415; 80053; 80307; 85025; 87426; 96372; 99285; G0480; J1200; J1630; J2060

== ENCOUNTER 2021-10-04 20:07 | Emergency (ER) | payer OTHER ==
[~2021-10-04] VITALS: Ht 170.2 cm; Wt 63.6 kg
[~2021-10-04 20:07] MED LIST changes: +PALI234D IM
[2021-10-04 20:28] VITALS: BP 131/79
[2021-10-04] MEDS ORDERED: LITHIUM CARBONATE 600 MG CAPSULE PO ONE (21:15)
[2021-10-04] MEDS ORDERED: OLANZapine 5 MG TABLET PO ONE (21:15)
[2021-10-04] MEDS: HALOPERIDOL 5 MG TABLET PO ONE ×2 (21:21→21:34)
[2021-10-05] MEDS ORDERED: MIDAZOLAM HCL 5 MG/ML VIAL ONE (05:51)
[2021-10-05] MEDS ORDERED: OLANZapine 5 MG RAPDIS TABLET PO ONE (06:00)
[2021-10-05] MEDS ORDERED: MIDAZOLAM HCL 5 MG/ML VIAL IM ONE (06:00)
== END 2021-10-05 14:02 | disposition home or self-care (01) ==
LOC: EMS 20:20
DX: F20.9 Schizophrenia, unspecified (principal); F31.9 Bipolar disorder, unspecified; F41.9 Anxiety disorder, unspecified; F17.210 Nicotine dependence, cigarettes, uncomplicated; Z79.899 Other long term (current) drug therapy
CPT/HCPCS: 96372; 99283; J2250